=== PATIENT | male | born 1950 | race Caucasian/White ===

== ENCOUNTER 2018-08-24 14:09 | Observation (INO) | payer OTHER, SELFPAY ==
[2018-08-17 11:55] VITALS: BMI 40.2
[2018-08-23] VITALS (16 sets, daily range): BP systolic 125–143; BP diastolic 58–82; PULSE 81–113; RESP 10–112; TEMP 36.3–37.2; O2SAT 94–100; BMI 40.2
--- NOTE | 2018-08-23 | DI.RAD.S_ITS ---
PROCEDURE: XR LUMBAR SPINE 1V INDICATIONS: L2-3, L3-4 LAMINECTOMY TECHNIQUE: 1 view of the lumbar spine were acquired. COMPARISON: [facility], MR, MR LUMBAR SPINE WITHOUT CONTRAST, 05/25/2018, 10:29. FINDINGS: A lateral fluoroscopy images demonstrate a surgical probe at the level of L2-L3. IMPRESSION: Surgical probe at the level of L2-L3. Dictated by: Maddy Gonzales M.D. on 08/23/2018 at 15:02 Approved by: Maddy Gonzales M.D. on 08/23/2018 at 15:03
[2018-08-23] MEDS: LACTATED RINGERS 1,000 ML 42 ML IV (06:49)
--- NOTE | 2018-08-23 07:25 | PM.PREOP ---
Pre-operative Note Interval Note History & Physical reviewed/Exam performed by Physician: Yes Changes to H&P: No
--- NOTE | 2018-08-23 07:33 | PM.OP.1 ---
Operative Date/Time/Diagnoses Date of procedure: 08/23/18 Time of procedure: 09:35 Pre-op diagnosis: lumbar stenosis with radiculopathy Post-op diagnosis: same Procedure & Clinicians Procedure: L2-3, L3-4 laminectomy Use of microscope Placement of epidural catheter Same procedure as scheduled: Yes Indications: [age] year old male with intractable pain from stenosis. They had failed conservative management and requested operative intervention. Risks and benefits of surgery were discussed and appropriate consents were obtained. Surgeon: René Anderson Combat Systems Engineer: Jaqueline Clifton Anesthesia Type: General Operative Notes Findings: None Closure Type: primary Specimen(s): none sent Estimated Blood Loss (mL): 20 Procedure in detail: Patient was brought to the operating room and intubated on the table. They were rolled over on the well-padded prone position on the Patrice table. A time-out was performed. Preoperative antibiotics were given. The back was prepped and draped in standard sterile fashion. Using fluoroscopy for localization, a 7 cm incision was made in the midline. We used Bovie to dissect through the lumbodorsal fascia and then subperiosteally dissect the paraspinal muscles off the right side. A marker was placed and x-ray was taken to confirm positioning. We then brought in the microscope. A right-sided laminectomy was performed at L2-3 and L3-4. We carefully depressed the dura and reached across the midline to decompress the opposite side. The neural foramen were cleared out. At the end, we could reach with the ball probe cephalad and caudally across the midline and to the foramen and everything was opened. The wound was irrigated. An epidural catheter was prepared with 8 mL of 0.25% Marcaine and 100 mcg of fentanyl. The dura was carefully depressed and the catheter was advanced 6 cm cephalad underneath remaining lamina without resistance. The fascia was then closed in layers. The epidural catheter was injected without complications. Vancomycin powder was placed in the wound. The superficial and the skin were closed. Sterile dressing was placed. Patient was rolled over extubated brought to recovery room with no complications. Complications: none Condition: stable Disposition: PACU Plan for aftercare: Overnight admission. Mobilize with therapy.
[2018-08-23] MEDS: CLINDAMYCIN 900 MG/50 ML PIGGYBACK 50 MG IV ×3 (07:45→23:53)
--- NOTE | 2018-08-23 08:13 | SUR.OPER ---
Prone on spine table, head in foam head support, padded chest and pelvic supports, gel pad at knees, lower legs supported by pillows; nipples, genitalia and toes free of pressure, arms secured on foam padded arm boards at <90 degrees abduction. Tape over blanket at thigh secured to table.
[2018-08-23] MEDS: THROMBIN (RECOMBINANT) 5,000 UNIT VIAL 5000 UNIT TOP (08:25)
[2018-08-23] MEDS: VANCOMYCIN 1,000 MG VIAL 1000 MG TOP (08:25)
[2018-08-23] MEDS: BUPIVACAINE 0.25% (PF) 8 ML, fentaNYL 100 MCG INJ (08:31)
[2018-08-23] MEDS: SODIUM CHLORIDE 0.9% 1,000 ML, GENTAMICIN 80 MG IRR (09:03)
--- NOTE | 2018-08-23 10:32 | CM.DANOTE ---
DCP: Case received, EMR reviewed and met with patient's , for he is in surgery. DCP template completed with information given, and currently available. White board updated in room. Patient is a 68 year old male who admitted early this morning to the care of the surgical team. PCP: Maral Cid at [facility]. Payer: confirmed: [employer]. Patient came to hospital for surgical procedure. He had L2-3, L3-4 Laminectomy. He has history of left lateral and anterior leg pain. Spoke to , Misty. She stated, he has had a couple of falls at home, his leg would just give out. She has already gotten him a walker. He has been driving as well. Him and his both reside in [facility]. P: DCP to continue to follow closely. Will see how he progresses post surgery. He will be working with physical therapy team as well, and will also collaborate with them as well. Eve Yang RN/Treasury Specialist
[2018-08-23] MEDS: LACTATED RINGERS 1,000 ML 125 ML IV ×2 (10:55→21:54)
[2018-08-23] MEDS: ACETAMINOPHEN 325 MG TABLET 650 MG PO ×2 (12:39→21:53)
--- NOTE | 2018-08-23 13:23 | PC.NURSE ---
Post-op: Arrived to room 218 at 1030. Wide awake and alert, oriented X3. Dressing to mid low back C/D/I. Reports mild numbness/tingling in BLE's resolving. Feet pink, cap refill <2 sec. Reporting mild pain in low back, given Tylenol and instructed to request stronger pain meds as needed. Denies N/V. BT+, hypoactive. Denies urge to void, continue to monitor. Lungs CTA, HRR. SpO2 on RA 99-100%. IVF per orders, site in R wrist WNL. Oriented to room and call light, encouraged to make needs known. Light in reach, bed alarm on.
[2018-08-23] MEDS: OXYCODONE IR 5 MG TABLET PO ×3 (14:11→21:53)
--- NOTE | 2018-08-23 16:00 | PT.IIE ---
Current Diagnoses Spinal stenosis, lumbar region with neurogenic claudication (08/23/18) Radiculopathy, lumbar region (08/23/18) Strain of muscle, fascia and tendon of lower back, subsequent encounter (08/23/18) Surgery Performed Operation Date: 08/23/18 07:45 Actual Procedures p L2-3, L3-4 Laminectomy - René Anderson MD Surgical History (Last Updated 08/17/18 @ 12:45 by Fatimah Smith RN) H/O coronary angioplasty (Acute) Hx of heart artery stent (Acute ~04/2013) Hx of laminectomy (Acute 08/08/15) Hx of transurethral resection of prostate (Acute) Medical History (Last Updated 08/17/18 @ 12:45 by Fatimah Smith RN) Anxiety (Acute) Arrhythmia (Acute) Atypical chest pain (Acute) BPH (benign prostatic hyperplasia) (Acute) CAD (coronary artery disease) (Acute) Chronic back pain (Acute) Depression (Acute) Diabetes (Acute) First degree AV block (Acute) HLD (hyperlipidemia) (Acute) HTN (hypertension) (Acute) Lipoma (Acute) Lower extremity edema (Acute) LEONARDO (obstructive sleep apnea) (Acute) Syncope (Acute) Vitamin D deficiency (Acute) Physical Therapy Inpatient Evaluation/Re-Eval M1 PT/OT-IP Prior Functional Status Start: 08/23/18 15:50 Freq: NEEDED Status: Active Protocol: Document 08/23/18 15:51 RS (Rec: 08/23/18 15:59 RS [id number]) Medical Review Prior Functional Status Medical History Reviewed Yes Diet/Fluid Consistency Regular Communication no known deficits Mobility and Gait ind without device Activities of Daily Living and IADL's ind Prior Functional Level (Other details) has fallen a few times due to RLE giving out Social History Household Members spouse Living Arrangements House Number of Floors (Floors) One Floor Number of Stairs To Enter/Railing? 3STE Home Environment Standard Height Toilet High Toilet Built-In Shower Seat Home Equipment Four Wheel Walker Hand Held Shower Feller Operator Hospital Bed Additional Social History Comment in process of retiring due to injury M2 PT-IP Current Condition Start: 08/23/18 15:50 Freq: NEEDED Status: Active Protocol: Document 08/23/18 15:51 RS (Rec: 08/23/18 15:59 RS [id number]) Physical Therapy Current Condition Current Condition Evaluation Date 08/23/18 Treatment Diagnosis L2-4 lami Onset Date 08/23/18 Precautions Lumbar Precautions Log Roll No Twisting Limit Bending Lifting Restriction of 10 lbs Gait Belt above Incisional Area M3 PT-IP Subjective Start: 08/23/18 15:50 Freq: NEEDED Status: Active Protocol: Document 08/23/18 15:51 RS (Rec: 08/23/18 15:59 RS [id number]) Subjective Physical Therapy Visit Type Type Initial Evaluation Visit Start Time 14:50 Visit Stop Time 15:51 Total Visit Minutes 61 Physical Therapy Visit Comments Patient Comments Pt nervous to mobilize but ultimately agreeable. Patient Goals Go home. Therapy Pain Assessment Pain When Pain Assessed During Mobility Pain Present Pain Present Pain Reported Location lower back Description Aching Tender With Movement Pain Behaviors Wincing Pain Management Techniques Re-positioning Timing of Activity with Medications M4 PT-IP Mobility and Gait Start: 08/23/18 15:50 Freq: NEEDED Status: Active Protocol: Document 08/23/18 15:51 RS (Rec: 08/23/18 15:59 [id number]) PT-Bed Mobility Assessment Rolling Type of Rolling Log Rolling Roll to Right Level of Assist Minimal Assistance Supine to Sit Supine to Sit Minimal Assistance Scooting Scooting to Edge of Bed Standby Assistance PT-Transfer Assessment Sit to and From Stand Sit to and from Stand Contact Guard Assistance Equipment Transfer Assistive Device Gait Belt Front Wheeled Walker Transfers Transfer Destination Bed Chair Transfer Technique walked Transfer Ability Level of Assist Standby Assistance Comments Mobility Comments Pt able to perform R log roll, min A provided as pt was so close to the edge of the bed to begin with. Min A provided to actually roll and then also Min A to come up to sitting. Transfers were very stable, no LOB, good smooth motion. Gait Assessment Gait Gait Assistance Required: Standby Assistance Distance (Feet) 200 Assistive Devices Assistive Device Gait Belt Front Wheeled Walker Gait Deviations General Gait Pattern Within Normal Limits Comments Gait Comments Pt taking slightly shorter steps but able to take symmetrical non antlagic steps without any LOB. Good posture , minimally stiff. Stair Climbing Assessment Comments Stair Climbing Comments not tested yet PT-Balance Assessment Sitting Balance and Reactions Static Sitting Balance Ability Normal Dynamic Sitting Balance Ability Fair Standing Balance and Reactions Static Standing Balance Ability Good Dynamic Standing Balance Ability Good Device Used FWW M5 PT-IP Objective Assessments Start: 08/23/18 15:50 Freq: NEEDED Status: Active Protocol: Document 08/23/18 15:51 RS (Rec: 08/23/18 15:59 RS [id number]) Orientation Orientation/Cognition Level of Alertness Alert Orientation Name Age Birthday Month Date Year Day of Week Place Situation Language Function Ability No Deficits Noted Safety Awareness Understands Safety Issues Memory Description No Deficits Noted Gross Range of Motion Upper Extremity ROM Assessment Left Impaired Lower Extremity ROM Assessment Within Functional Limits Strength Upper Extremity Strength Assessment Left Impaired Lower Extremity Strength Assessment Within Functional Limits M6 PT-IP Treatment Start: 08/23/18 15:50 Freq: NEEDED Status: Active Protocol: Document 08/23/18 15:51 RS (Rec: 08/23/18 15:59 RS [id number]) Physical Therapy Treatment Education Education Provided Precautions Post-Op Packet Safety M7 PT-IP Assessment and Plan Start: 08/23/18 15:50 Freq: NEEDED Status: Active Protocol: Document 08/23/18 15:51 RS (Rec: 08/23/18 15:59 RS [id number]) PT Summary Assessment and Plan Potential Rehabilitation Potential Excellent Status of Condition at Evaluation Stable Summary Impairments Pain Bed Mobility Transfers Gait Assessment Summary Pt is POD#0 L2-4 laminectomy. Pt presents with pain and gross deconditioning as expected after this surgery. Pt's RLE stability seems to be much better than before surgery per pt report. Pt needed min A for bed mobility but was otherwise CGA<>min A with FWW for transfers and gait. Pt will need stair training and more bed mobility training with associated family training prior to discharge, but once that is complete pt will be safe to discharge home once medically cleared. Goals Bed Mobility Goal Standby Assistance Transfer Goal Standby Assistance Four Wheeled Walker Gait Goal Standby Assistance Four Wheel Walker Gait Distance 250 Other Goals up/down 3 steps with CGA Days to Meet Goals 2 Frequency of Treatment Frequency Of Treatment Twice a Day Treatment Plan Physical Therapy Treatment Plan Bed Mobility Training Transfer Training Gait Training Therapeutic Exercise Balance Retraining Post Op Education Discharge Planning Hot or Cold Pack Neuromuscular Re-ed Coordination Retraining Manual Therapy Other Recommendations and Next Treatment stairs, trial 4WW (that's what Focus pt has at home, might need FWW if not safe with 4WW), any fam training Recommendations To Nursing Amount of Assist Needed 1 Person Assist Discharge Recommendations PT Discharge Recommendations Home with 24/ Assist Outpatient PT
[2018-08-23] MEDS: NAPROXEN 250 MG TABLET 500 MG PO (17:02)
[2018-08-23] MEDS: METFORMIN HCL 500 MG TABLET 1000 MG PO (17:28)
[2018-08-23] MEDS: DOCUSATE 100 MG CAPSULE PO (21:52)
[2018-08-23] MEDS: glipiZIDE 5 MG TABLET 10 MG PO (21:52)
[2018-08-23] MEDS: SENNOSIDES 8.6 MG TABLET 17.2 MG PO (21:52)
[2018-08-23] MEDS: GABAPENTIN 300 MG CAPSULE PO (21:52)
[2018-08-24] VITALS (7 sets, daily range): BP systolic 122–145; BP diastolic 62–76; PULSE 80–95; RESP 18–20; TEMP 36.5–36.9; O2SAT 96
--- NOTE | 2018-08-24 00:15 | PC.NURSE ---
Addendum entered by Cherie Bowles R.N. 08/24/18 01:07: Medicated with Oxycodone for complaint of 3/10 pain; declines ice or repositioning. Original Note: Patient is alert and oriented. Breath sounds CTA with RA sat on CPAP of 94%. HRR. Denies nausea. BT present and abdomen is soft; passing flatus. Voiding without difficulty; uses urinal. Assisted to turn on request as has difficulty with turning due to torn rotator cuff on left UE. Dressing to back is CDI; bruising noted below dressing. Complains of 4/10 pain but states it is tolerable and declines offer of ice pack; last had pain meds around 2200. CMS is intact. Wearing bilateral calf SCD's. Fall risk score is high and bed alarm is activated.
[2018-08-24] MEDS: OXYCODONE IR 5 MG TABLET PO ×4 (01:00→21:09)
[2018-08-24 05:56] LABS: Hematocrit 32.7 % (41-53); Hemoglobin 10.8 g/dL (13.5-17.5)
[2018-08-24 06:02] LABS: BUN Creatinine Ratio 18.5 (6-22); Blood Urea Nitrogen 24 mg/dL (9-20); Calcium 8.8 mg/dL (8.4-10.2); Carbon Dioxide 29 mmol/L (22-32); Chloride 102 mmol/L (98-107); Estimated Glomerular Filt Rate 54.6 mL/min (>60); Glucose 121 mg/dL (80-110); HEMOLYSIS < 15 (0-50); Potassium 4.3 mmol/L (3.4-5.1); Sodium 137 mmol/L (137-145)
--- NOTE | 2018-08-24 07:59 | PM.PNPO.1 ---
Subjective Date Patient Seen: 08/24/18 Time Patient Seen: 07:59 Interval history: He is doing well. No more pain in his legs. Pain in the back is about 6/10 with any activity but fairly comfortable at rest. Exam Vital Signs (past 8 hours): - 08/24/18 04:00 Temperature 97.8 F Pulse Rate 80 Respiratory Rate 18 Blood Pressure 130/67 Pulse Oximetry 96 Oxygen Delivery Method CPAP Oxygen Flow Rate 0 Const Orientation: alert and oriented x3 Back/Spine/Pelvis Other: CDI. 5/5 motor both lower extremities. Objective Labs Result Diagrams: 08/24/18 05:30 08/24/18 05:30 Labs: Laboratory Results - last 24 hr 08/24/18 08/24/18 05:30 05:30 Hgb 10.8 L Hct 32.7 L Sodium 137 Potassium 4.3 Chloride 102 Carbon Dioxide 29 BUN 24 H Creatinine 1.30 H Estimated GFR 54.6 L BUN/Creatinine Ratio 18.5 Glucose 121 H Calcium 8.8 Assessment & Plan Post-op Postoperative Procedures Operation Date: 08/23/18 07:45 Actual Procedures Side Surgeon p L2-3, L3-4 Laminectomy René Anderson MD Still early recovering. Mobilize today with physical therapy. Most likely discharge home tomorrow. His blood sugars are running still about 175, will try to work on this today. Quality VTE Deep Vein Thrombosis/Pulmonary Embolism Present on Admission: No
[2018-08-24] MEDS: LISINOPRIL 20 MG TABLET 40 MG PO (08:44)
[2018-08-24] MEDS: NAPROXEN 250 MG TABLET 500 MG PO ×2 (08:44→17:04)
[2018-08-24] MEDS: DOCUSATE 100 MG CAPSULE PO ×2 (08:45→21:05)
[2018-08-24] MEDS: ASPIRIN EC 81 MG TABLET PO (08:45)
[2018-08-24] MEDS: OXYBUTYNIN 5 MG ER TAB 15 MG PO (08:46)
[2018-08-24] MEDS: glipiZIDE 5 MG TABLET 10 MG PO ×2 (08:46→21:05)
[2018-08-24] MEDS: PIOGLITAZONE 15 MG TABLET 30 MG PO (08:47)
[2018-08-24] MEDS: METFORMIN HCL 500 MG TABLET 1000 MG PO ×2 (08:48→17:04)
[2018-08-24] MEDS: SODIUM CHLORIDE 0.9% FLUSH 10 ML IV ×2 (08:49→21:06)
--- NOTE | 2018-08-24 09:49 | PC.NURSE ---
Pt is A&Ox3. He states that he is having some pain to his lower back...Given 1 oxycodone for discomfort and will recheck pts pain leve in 30-45 minutes. Pt also given ice packs for his back. Dressing to lower back with small amount of ss drainage to distal end of incision. Pt working with PT and OT and tolerating well. Pt has a discharge order to go home but talked to and states that he could stay another night if needed. in room visiting.
--- NOTE | 2018-08-24 12:17 | PT.IPTN ---
Current Diagnoses Spinal stenosis, lumbar region with neurogenic claudication (08/23/18) Radiculopathy, lumbar region (08/23/18) Strain of muscle, fascia and tendon of lower back, subsequent encounter (08/23/18) Surgery Performed Operation Date: 08/23/18 07:45 Actual Procedures p L2-3, L3-4 Laminectomy - René Anderson MD Physical Therapy Treatment Note M2 PT-IP Current Condition Start: 08/23/18 15:50 Freq: NEEDED Status: Active Protocol: Document 08/23/18 15:51 RS (Rec: 08/23/18 15:59 RS [id number]) Physical Therapy Current Condition Current Condition Evaluation Date 08/23/18 Treatment Diagnosis L2-4 lami Onset Date 08/23/18 Precautions Lumbar Precautions Log Roll No Twisting Limit Bending Lifting Restriction of 10 lbs Gait Belt above Incisional Area M3 PT-IP Subjective Start: 08/23/18 15:50 Freq: NEEDED Status: Active Protocol: Document 08/24/18 12:03 SA (Rec: 08/24/18 12:17 SA [id number]) Subjective Physical Therapy Visit Type Type Treatment Note Visit Start Time 10:17 Visit Stop Time 10:45 Total Visit Minutes 28 Number of SPA DIRECTOR/FINANCE Visits 1 Physical Therapy Visit Comments Patient Comments Pt up in chair and agreeable to PT, present this AM. Patient Goals Go home. Therapy Pain Assessment Pain When Pain Assessed During Mobility Pain Present Pain Present Pain Reported Location lower back Intensity 4 Scale Used Numeric (1 - 10) Description Aching Tender With Movement Pain Behaviors Wincing Pain Management Techniques Re-positioning Timing of Activity with Medications M4 PT-IP Mobility and Gait Start: 08/23/18 15:50 Freq: NEEDED Status: Active Protocol: Document 08/24/18 12:03 SA (Rec: 08/24/18 12:17 SA [id number]) PT-Bed Mobility Assessment Supine to Sit Supine to Sit Contact Guard Assistance Scooting Scooting to Edge of Bed Standby Assistance Scooting Up and Down in Bed Standby Assistance PT-Transfer Assessment Sit to and From Stand Sit to and from Stand Contact Guard Assistance Equipment Transfer Assistive Device Gait Belt Front Wheeled Walker Transfers Transfer Destination Bed Chair Transfer Technique walked Transfer Ability Level of Assist Standby Assistance Comments Mobility Comments Pt CGA for sit to supine with log roll technique and instruction. SBA-CGA for transfers with FWW. Review of spinal precautions. Gait Assessment Gait Gait Assistance Required: Standby Assistance Distance (Feet) 250 Assistive Devices Assistive Device Gait Belt Front Wheeled Walker Gait Deviations General Gait Pattern Within Normal Limits Comments Gait Comments Improving gait quality and distance, even step lengths and cues for decreasing WBing through UEs, manages FWW safely. Stair Climbing Assessment Evaluation Level of Assist On Stairs Contact Guard Assistance Devices Stair Climbing Assistive Devices Left Railing Right Railing Technique/Endurance Stair Climbing Direction Ascend and Descend Stair Climbing Technique Step to Step Number of Steps Climbed 3 Query Text: Stair Climbing Set # Repetitions (reps) 1 Comments Stair Climbing Comments Pt CGA with stairs and use of B rails, Mod cues for safe technique, no LOb. M5 PT-IP Objective Assessments Start: 08/23/18 15:50 Freq: NEEDED Status: Active Protocol: Document 08/23/18 15:51 RS (Rec: 08/23/18 15:59 RS [id number]) Orientation Orientation/Cognition Level of Alertness Alert Orientation Name Age Birthday Month Date Year Day of Week Place Situation Language Function Ability No Deficits Noted Safety Awareness Understands Safety Issues Memory Description No Deficits Noted Gross Range of Motion Upper Extremity ROM Assessment Left Impaired Lower Extremity ROM Assessment Within Functional Limits Strength Upper Extremity Strength Assessment Left Impaired Lower Extremity Strength Assessment Within Functional Limits M6 PT-IP Treatment Start: 08/23/18 15:50 Freq: NEEDED Status: Active Protocol: Document 08/24/18 12:03 (Rec: 08/24/18 12:17 [id number]) Physical Therapy Treatment Exercises Exercises Ankle Pumps Gluteal Sets Quad Sets Education Education Provided Precautions Post-Op Packet Safety Other Treatments Other Treatment Performed Pt able to stand at toilet to urinate without LOB. M7 PT-IP Assessment and Plan Start: 08/23/18 15:50 Freq: NEEDED Status: Active Protocol: Document 08/24/18 12:03 (Rec: 08/24/18 12:17 [id number]) PT Summary Assessment and Plan Potential Rehabilitation Potential Excellent Status of Condition at Evaluation Stable Summary Assessment Summary Pt progressing well with functional mobility, RLE improving and pt SBA-CGA with transfers, gait and stairs. Pt 's present and available as caregiver. Frequency of Treatment Frequency Of Treatment Twice a Day Treatment Plan Physical Therapy Treatment Plan Bed Mobility Training Transfer Training Gait Training Therapeutic Exercise Balance Retraining Post Op Education Discharge Planning Hot or Cold Pack Neuromuscular Re-ed Coordination Retraining Manual Therapy Other Recommendations and Next Treatment stairs, trial 4WW (that's what Focus pt has at home, might need FWW if not safe with 4WW), any fam training Recommendations To Nursing Amount of Assist Needed 1 Person Assist Discharge Recommendations PT Discharge Recommendations Home with 26/10 Assist Outpatient PT
[2018-08-24] MEDS: INSULIN ASPART 100 UNIT/ML INSULN PEN SUBCUT (12:22)
[2018-08-24] MEDS: ACETAMINOPHEN 325 MG TABLET 650 MG PO (13:49)
--- NOTE | 2018-08-24 15:10 | OT.IP.EVAL ---
Current Diagnoses Spinal stenosis, lumbar region with neurogenic claudication (08/24/18) Radiculopathy, lumbar region (08/24/18) Strain of muscle, fascia and tendon of lower back, subsequent encounter (08/24/18) Surgery Performed Operation Date: 08/23/18 07:45 Actual Procedures p L2-3, L3-4 Laminectomy - René Anderson MD Past Medical History (Last Updated 08/17/18 @ 12:45 by Fatimah Smith RN) Anxiety (Acute) Arrhythmia (Acute) Atypical chest pain (Acute) BPH (benign prostatic hyperplasia) (Acute) CAD (coronary artery disease) (Acute) Chronic back pain (Acute) Depression (Acute) Diabetes (Acute) First degree AV block (Acute) HLD (hyperlipidemia) (Acute) HTN (hypertension) (Acute) Lipoma (Acute) Lower extremity edema (Acute) LEONARDO (obstructive sleep apnea) (Acute) Syncope (Acute) Vitamin D deficiency (Acute) Surgical History (Last Updated 08/17/18 @ 12:45 by Fatimah Smith RN) H/O coronary angioplasty (Acute) Hx of heart artery stent (Acute ~04/2013) Hx of laminectomy (Acute 08/08/15) Hx of transurethral resection of prostate (Acute) Occupational Therapy Inpatient Evaluation/Re-Eval M1 PT/OT-IP Prior Functional Status Start: 08/23/18 15:50 Freq: NEEDED Status: Active Protocol: Document 08/24/18 15:10 PJM (Rec: 08/24/18 17:21 PJM [id number]) Medical Review Prior Functional Status Medical History Reviewed Yes Diet/Fluid Consistency Regular Communication WNL Mobility and Gait Pt ambulates independently without device. Activities of Daily Living and IADL's Pt independent except occasionally assisting with socks and shoes due to low back pain. assists with all IADLS at home and she works days driving school bus and working at school. She can come home for lunch to assist pt PRN. Prior Functional Level (Other details) Pt states he has fallen three times recently due to RLE giving out, resulting in L rotator cuff tear. Social History Household Members spouse Living Arrangements House Number of Floors (Floors) One Floor Number of Stairs To Enter/Railing? 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 Pt declines long bath sponge and states he plans to stand to shower. M2 OT-IP Current Condition Start: 08/24/18 17:00 Freq: Status: Active Protocol: Document 08/24/18 15:10 PJM (Rec: 08/24/18 17:21 PJM [email or web address]) Occupational Therapy Current Condition Current Condition Evaluation Date 08/24/18 Treatment Diagnosis decreased self care, mobility s/p L2-3, L3-4 lami's Diagnosis Onset Date 08/23/18 Post Operative Precautions Lumbar Precautions Log Roll No Twisting Limit Bending Lifting Restriction of 10 lbs Gait Belt above Incisional Area M3 OT- IP Subjective and Pain Start: 08/24/18 17:00 Freq: Status: Active Protocol: Document 08/24/18 15:10 PJM (Rec: 08/24/18 17:21 PJM [email or web address]) OT- Subjective Occupational Therapy Visit Type Type Initial Evaluation Visit Start Time 14:20 Visit Stop Time 15:10 Total Visit Minutes 50 Notes Pt's here for education; pt/ had many questions re: adapted ADL skills and resources for equipment. Occupational Therapy Visit Comments Patient Comments I am not sure how I can wipe myself after going to the bathroom. Patient/Caregiver Goals to go home, have less back pain during daily tasks, avoid falling OT Pain Assessment Pain When Pain Assessed After Treatment Pain Present Pain Present Pain Reported Location lower back Intensity 2 Description Aching Acute Management Techniques Distraction Timing of Activity with Medications M4 OT- IP ADL's Start: 08/24/18 17:00 Freq: Status: Active Protocol: Document 08/24/18 15:10 PJM (Rec: 08/24/18 17:21 PJ [id number]) OT [id number] General Evaluation Self-Feeding Ability Independent OT ADL-Grooming Comments OT Grooming Comments did not occur this session OT ADL-Oral Care Comments Oral Care Comments did not occur this session OT ADL-Dressing General Eval Upper Body Dressing Ability Standby Assistance Lower Body Dressing Ability Maximum Assistance Assistive Devices Dressing Assistive Devices Long Handled Shoe Horn Sock Folder Sock Aid Comments OT Dressing Comments Provided education re: use of second baller, sock aid and long shoe horn for lower body dressing with emphasis on lumbar spine precautions. Pt has second baller and long shoe horn . He would like to try wide sock aid tomorrow as leaves for work before he gets up. OT ADL-Toileting General Evaluation Areas Needing Assistance Perform Perineal Hygiene Devices Toileting Assistive Devices Toilet Paper Aid Comments OT Toileting Comments Provided education re: types of toilet paper aids and resources for these. will order one on line. Provided education re: body mechanics as pt tends to twist during this task. OT ADL-Bathing Bathing Type Bathing Type Shower Comments OT Bathing Comments Provided education re: body mechanics and lumbar spine precautions. M5 OT- IP IADL's Start: 08/24/18 17:00 Freq: Status: Active Protocol: Document 08/24/18 15:10 PJ (Rec: 08/24/18 17:21 [facility] [id number]) OT-Instrumental Activities of Daily Living Deficits IADL Deficits Identified Deficits Home Safety Awareness Awareness of Need for Assistance at Home Good Awareness Ability to Problem Solve Emergency Able to Problem Solve Situations Medication Management Medication Management No Deficits Identified Money Management Money Management No Deficits Identified Meal Preparation Meal Preparation Caregiver Provides Assist Meal Preparation Comments to assist PRN Fabricator Industrial Furnace Fabricator Industrial Furnace Caregiver Provides Assist Fabricator Industrial Furnace Comments to assist PRN Driving Driving Caregiver Provides Assist Driving Comments to assist until pt able M6 OT- IP Functional Cognition Start: 08/24/18 17:00 Freq: Status: Active Protocol: Document 08/24/18 15:10 PJM (Rec: 08/24/18 17:21 [facility] [id number]) Cognitive Factors Limiting Selfcare Function Cognitive Ability Level of Alertness Alert Patient Orientation Name Age Birthday Month Date Year Day of Week Place Situation Attention Span Ability Capable of Focused Attention Capable of Sustained Attention Ability to Follow Commands Able to Follow One Step Commands Memory Description No Deficits Noted Safety Awareness No Deficits Noted Problem Solving Ability Needs Assist to Identify Solutions Executive Function Ability No Deficits Noted Abstract Thinking Ability No Deficits Noted Cognitive Comments Cognitive Assessment Comments Pt verbalizes 3/3 lumbar spine precautions and asking appropriate and detailed questions about adapted ADL techniques. OT- Vision and Hearing OT- Hearing Assessment OT- Hearing Assessment WFL OT- Vision Assessment Visual Acuity WFL Glasses All The Time Vision Assessment Comments denies any recent vision changes M7 OT- IP Mobility and Balance Start: 08/24/18 17:00 Freq: Status: Active Protocol: Document 08/24/18 15:10 PJM (Rec: 08/24/18 17:21 PJ [id number]) OT-Transfer Assessment Technique Transfer Destination Car Comments Mobility Comments see P.T. notes; provided education re: car transfer techniques and use of handy bar OT- Gait Assessment Comments Gait Ability Comments see P.T. notes OT- Balance Assessment Comments Other Balance Tests/Deviations/Treatment see P.T. notes : M8 OT- IP Objective Assessments Start: 08/24/18 17:00 Freq: Status: Active Protocol: Document 08/24/18 15:10 PJM (Rec: 08/24/18 17:21 PJ [id number]) OT Gross Range of Motion Upper Extremity Range of Motion Assessment Within Functional Limits ROM Impairments BUE WFL except for L shoulder with pt receiving P.T. for recent rotator cuff tear with slow deliberate shoulder flexion, mildly limited end range scaption noted. OT Strength Upper Extremity Strength Assessment Within Functional Limits Comments Strength Comments L shoulder NT due to recent injury. OT- Coordination Assessment Comments Coordination Comments BUE WFL OT-Muscle Tone Assessment Muscle Tone WNL Yes OT Sensation Assessment Comments Summary Comments Pt denies BUE deficits. Edema Edema Absent M9 OT- IP Assessment and Plan Start: 08/24/18 17:00 Freq: Status: Active Protocol: Document 08/24/18 15:10 PJM (Rec: 08/24/18 17:21 PJ [id number]) OT Summary Assessment and Plan Potential Rehabilitation Potential Good Analytic Complexity at Evaluation Low Summary OT Impairments Pain Functional Mobility Dressing Toileting Bathing Toilet Transfers Shower Transfers Assessment Summary Low complexity OT assessment completed with emphasis on self care tasks within lumbar spine precautions. Provided education to pt/ re: posture, chair selection, body mechanics, adapted ADL techniques, optimal clothing choices and equipment options/resources. Per discussion with P.T., pt moving well and should be able to d/c home tomorrow with supportive working . Plan one additional OT visit to practice adapted ADL techniques Goals Grooming Goal Independent Dressing Goal Independent Long Handled Shoe Horn Sock Folder Sock Aid Toileting Goal Independent Toilet Paper Aid Bathing Goal Standby Assistance Toilet Transfer Goal Independent Shower Transfer Goal Standby Assistance Patient/Caregiver Education Goal Demonstrate Post-Op Precautions Demonstrate Energy Conservation and Pacing Caregiver Independent Assisting Patient OT-Other Goals Grooming to be done standing at sink with good body mechanics. Days to Meet Goals 1 Frequency of Treatment Frequency Of Treatment Once a Day Treatment Plan OT Treatment Plan ADL Training Functional Mobility Patient/Family Education Discharge Planning Discharge Recommendations OT Discharge Recommendations Home with Assistance Home Equipment Needs wide sock aid
--- NOTE | 2018-08-24 15:38 | PT.IPTN ---
Current Diagnoses Spinal stenosis, lumbar region with neurogenic claudication (08/24/18) Radiculopathy, lumbar region (08/24/18) Strain of muscle, fascia and tendon of lower back, subsequent encounter (08/24/18) Surgery Performed Operation Date: 08/23/18 07:45 Actual Procedures p L2-3, L3-4 Laminectomy - René Anderson MD Physical Therapy Treatment Note M2 PT-IP Current Condition Start: 08/23/18 15:50 Freq: NEEDED Status: Active Protocol: Document 08/23/18 15:51 RS (Rec: 08/23/18 15:59 RS [id number]) Physical Therapy Current Condition Current Condition Evaluation Date 08/23/18 Treatment Diagnosis L2-4 lami Onset Date 08/23/18 Precautions Lumbar Precautions Log Roll No Twisting Limit Bending Lifting Restriction of 10 lbs Gait Belt above Incisional Area M3 PT-IP Subjective Start: 08/23/18 15:50 Freq: NEEDED Status: Active Protocol: Document 08/24/18 15:31 SA (Rec: 08/24/18 15:37 SA [id number]) Subjective Physical Therapy Visit Type Type Treatment Note Visit Start Time 15:00 Visit Stop Time 15:30 Total Visit Minutes 30 Number of TOWEL FOLDER Visits 2 Physical Therapy Visit Comments Patient Comments Pt agreeable to PT this afternoon. Patient Goals Go home. Therapy Pain Assessment Pain When Pain Assessed During Mobility Pain Present Pain Present Denied Pain M4 PT-IP Mobility and Gait Start: 08/23/18 15:50 Freq: NEEDED Status: Active Protocol: Document 08/24/18 15:31 SA (Rec: 08/24/18 15:37 SA [id number]) PT-Transfer Assessment Sit to and From Stand Sit to and from Stand Standby Assistance Use of Upper Extremities Equipment Transfer Assistive Device Gait Belt Front Wheeled Walker Transfers Transfer Destination Bed Chair Transfer Technique walked Transfer Ability Level of Assist Standby Assistance Comments Mobility Comments Pt SBA with txs and FWW, reports little to no back pain with mobility. Decreased gaurded posture this afternoon . Gait Assessment Gait Gait Assistance Required: Standby Assistance Distance (Feet) 300 Assistive Devices Assistive Device Gait Belt Front Wheeled Walker Gait Deviations General Gait Pattern Within Normal Limits Comments Gait Comments PT presents with normal gait pattern and safe use of FWW, avoids obstacles well and turns easily, did not fatigue with gait and states he feels good walking. Stair Climbing Assessment Evaluation Level of Assist On Stairs Standby Assistance Devices Stair Climbing Assistive Devices Left Railing Right Railing Technique/Endurance Stair Climbing Direction Ascend and Descend Stair Climbing Technique Step to Step Number of Steps Climbed 3 Query Text: Stair Climbing Set # Repetitions (reps) 2 Comments Stair Climbing Comments SBA with stair training and use of B rails, pt has B rails at home. Did not need cues for safety or technique and denied pain with actiivty. M5 PT-IP Objective Assessments Start: 08/23/18 15:50 Freq: NEEDED Status: Active Protocol: Document 08/23/18 15:51 RS (Rec: 08/23/18 15:59 RS [id number]) Orientation Orientation/Cognition Level of Alertness Alert Orientation Name Age Birthday Month Date Year Day of Week Place Situation Language Function Ability No Deficits Noted Safety Awareness Understands Safety Issues Memory Description No Deficits Noted Gross Range of Motion Upper Extremity ROM Assessment Left Impaired Lower Extremity ROM Assessment Within Functional Limits Strength Upper Extremity Strength Assessment Left Impaired Lower Extremity Strength Assessment Within Functional Limits M6 PT-IP Treatment Start: 08/23/18 15:50 Freq: NEEDED Status: Active Protocol: Document 08/24/18 15:31 SA (Rec: 08/24/18 15:37 SA [id number]) Physical Therapy Treatment Exercises Exercises Ankle Pumps Gluteal Sets Quad Sets Education Education Provided Precautions Post-Op Packet Safety M7 PT-IP Assessment and Plan Start: 08/23/18 15:50 Freq: NEEDED Status: Active Protocol: Document 08/24/18 15:31 SA (Rec: 08/24/18 15:37 [id number]) PT Summary Assessment and Plan Potential Rehabilitation Potential Excellent Status of Condition at Evaluation Stable Summary Progress Towards Goals Progressing Toward Goals Assessment Summary Pt progressing toward functional goals well and present no safety concerns. Has all needed equipment and anticipate d/c home with tomorrow. Frequency of Treatment Frequency Of Treatment Twice a Day Treatment Plan Physical Therapy Treatment Plan Bed Mobility Training Transfer Training Gait Training Therapeutic Exercise Balance Retraining Post Op Education Discharge Planning Hot or Cold Pack Neuromuscular Re-ed Coordination Retraining Manual Therapy Recommendations To Nursing Amount of Assist Needed 1 Person Assist Discharge Recommendations PT Discharge Recommendations Home with / Assist Outpatient PT
[2018-08-24] MEDS: GABAPENTIN 300 MG CAPSULE PO (21:05)
[2018-08-24] MEDS: SENNOSIDES 8.6 MG TABLET 17.2 MG PO (21:06)
[2018-08-25 05:33] VITALS: BP 120/59; PULSE 82; RESP 17; TEMP 36.7; O2SAT 95
[2018-08-25 07:35] VITALS: BP 146/68; PULSE 89; RESP 18; TEMP 36.6; O2SAT 94
--- NOTE | 2018-08-25 08:04 | PM.PNPO.1 ---
Subjective Date Patient Seen: 08/25/18 Time Patient Seen: 08:04 Interval history: He is doing much better. Pain is only about a 2/10 at rest. Mobilizing well. Exam Vital Signs (past 8 hours): - 08/25/18 05:33 08/25/18 07:35 Temperature 98.0 F 97.8 F Pulse Rate 82 89 Respiratory Rate 17 18 Blood Pressure 120/59 L 146/68 H Pulse Oximetry 95 94 Oxygen Delivery Method CPAP Oxygen Flow Rate 0 Const Orientation: alert and oriented x3 Back/Spine/Pelvis Other: Mild drainage. 5/5 motor both lower extremities. Objective Labs Result Diagrams: 08/24/18 05:30 08/24/18 05:30 Assessment & Plan Post-op Postoperative Procedures Operation Date: 08/23/18 07:45 Actual Procedures Side Surgeon p L2-3, L3-4 Laminectomy René Anderson MD He is doing much better today. Plan to discharge home. Quality VTE Deep Vein Thrombosis/Pulmonary Embolism Present on Admission: No
--- NOTE | 2018-08-25 08:06 | PM.DS.1 ---
History of Present Illness Date Patient Seen: 08/25/18 Time Patient Seen: 08:06 Chief complaint: *OPB* [id number] Narrative: 68-year-old male with back pain and radiation going down the right leg. He had a work-related injury that causes. He went through extensive physical therapy as well as epidural injections without enough relief. Discharge Providers Date of admission: 08/24/18 14:09 Discharge Date: 08/25/18 Primary care physician: Jaron Bradford DO Consults: 08/23/18 07:22 Consult to Respiratory Therapy Evaluate & Treat Comment: Physician Instructions: Evaluate and treat 08/23/18 10:37 Consult to Occupational Therapy Evaluate & Treat Comment: Physician Instructions: Evaluate and treat Consult to Physical Therapy Evaluate & Treat Comment: Physician Instructions: Evaluate and Treat Discharge provider: René Anderson MD Summary Discharge Diagnosis: Lumbar stenosis with radiculopathy Hospital Course: He is brought to the operating room on 08/23/2018 where he underwent an L2-3 and L3-4 laminectomy. He had significant pain and limited mobility the 1st day. His blood sugars were elevated. By postop day 2. His blood sugars were getting under more normal control as well as his pain level was much more relieved and he was mobilizing well. Status at Discharge Cognitive/behavioral status at discharge: oriented Functional status at discharge: uses cane/walker Overall status at discharge: patient is progressing back to baseline Exam Vital Signs (past 8 hours): - 08/25/18 05:33 08/25/18 07:35 Temperature 98.0 F 97.8 F Pulse Rate 82 89 Respiratory Rate 17 18 Blood Pressure 120/59 L 146/68 H Pulse Oximetry 95 94 Oxygen Delivery Method CPAP Oxygen Flow Rate 0 Const Orientation: alert and oriented x3 Back/Spine/Pelvis Other: Mild drainage. 5/5 motor both lower extremities Objective Labs Result Diagrams: 08/24/18 05:30 08/24/18 05:30 Discharge Plan Discharge Plan Patient Disposition: Home Discharge comment: f/u 1.5 wks Discharge Med Rec/Prescriptions Prescriptions: New docusate sodium [DOK] 100 mg Capsule 100 mg PO BID PRN (Reason: constipation) Qty: 30 RF: 0 hydroxyzine pamoate 25 mg Capsule 25 mg PO Q4HR PRN (Reason: spasms) Qty: 20 RF: 0 oxycodone 5 mg Tablet See Rx Instructions .ROUTE .COMPLEX PRN (Reason: Pain, Moderate (4-6)) Qty: 30 RF: 0 Continued aspirin 81 mg Tablet,Delayed Release (Dr/Ec) 81 mg PO DAILY RF: 0 oxybutynin chloride 15 mg Tablet Extended Release 24hr 15 mg PO DAILY RF: 0 glipizide 10 mg Tablet 10 mg PO BID RF: 0 metformin 1,000 mg Tablet 1,000 mg PO BID RF: 0 lisinopril 40 mg Tablet 40 mg PO DAILY RF: 0 rosuvastatin 10 mg Tablet 10 mg PO DAILY RF: 0 Proglitazone tablet 30 mg PO DAILY RF: 0 naproxen [Naprosyn] 500 mg Tablet 500 mg PO DAILY RF: 0 Follow up/Referrals: Jaron Bradford DO [Primary Care Provider] - Provider Discharge Instructions Diet: Carb-consistent/Diabetic Activity: limited BLT 10 lbs max Skin/Wound/Dressing Care Report to your healthcare provider any signs of infection, such as:: chills, fever, night sweats, increased pain, unusual drainage and unusual redness Dressing: may change dressing and shower POD#5 Visit Report/Discharge Packet Instructions: DI for Laminectomy Stand Alone Forms: Surgery Discharge Discharge Data Primary Care Provider: Jaron Bradford Attending Provider: René Anderson Admestella Date/Time: 08/24/18 14:09 Quality VTE Deep Vein Thrombosis/Pulmonary Embolism Present on Admission: No
[2018-08-25 08:16] VITALS: BP 146/68
[2018-08-25] MEDS: LISINOPRIL 20 MG TABLET 40 MG PO (08:16)
[2018-08-25] MEDS: PIOGLITAZONE 15 MG TABLET 30 MG PO (08:16)
[2018-08-25] MEDS: DOCUSATE 100 MG CAPSULE PO (08:16)
[2018-08-25] MEDS: ROSUVASTATIN 10 MG TABLET PO (08:16)
[2018-08-25] MEDS: ASPIRIN EC 81 MG TABLET PO (08:16)
[2018-08-25] MEDS: NAPROXEN 250 MG TABLET 500 MG PO (08:16)
[2018-08-25] MEDS: METFORMIN HCL 500 MG TABLET 1000 MG PO (08:16)
[2018-08-25] MEDS: glipiZIDE 5 MG TABLET 10 MG PO (08:16)
[2018-08-25] MEDS: SODIUM CHLORIDE 0.9% FLUSH 10 ML IV (08:17)
[2018-08-25] MEDS: OXYBUTYNIN 5 MG ER TAB 15 MG PO (08:17)
--- NOTE | 2018-08-25 09:43 | OT.IP.TRT ---
Current Diagnoses Spinal stenosis, lumbar region with neurogenic claudication (08/24/18) Radiculopathy, lumbar region (08/24/18) Strain of muscle, fascia and tendon of lower back, subsequent encounter (08/24/18) Surgery Performed Operation Date: 08/23/18 07:45 Actual Procedures p L2-3, L3-4 Laminectomy - René Anderson MD Occupational Therapy Treatment Note M3 OT- IP Subjective and Pain Start: 08/24/18 17:00 Freq: Status: Active Protocol: Document 08/25/18 09:43 PJM (Rec: 08/25/18 09:58 PJ [id number]) OT- Subjective Occupational Therapy Visit Type Type Treatment Note Visit Start Time 09:15 Visit Stop Time 09:43 Total Visit Minutes 28 Notes Pt's here at end of session. Occupational Therapy Visit Comments Patient Comments I had a good shower. I feel really good today. Patient/Caregiver Goals to go home before lunch, have less pain during daily tasks OT Pain Assessment Pain When Pain Assessed After Treatment Pain Present Pain Present Pain Reported Location lower back Intensity 1 Scale Used Numeric (1 - 10) Description Aching Acute M4 OT- IP ADL's Start: 08/24/18 17:00 Freq: Status: Active Protocol: Document 08/25/18 09:43 PJM (Rec: 08/25/18 09:58 PJM [id number]) OT ADL-Grooming General Evaluation Grooming Ability Independent Areas Needing Assistance Face Washing Comments OT Grooming Comments provided education re: body mechanics while standing at sink, pt very tall and needs min cues to avoid forward bending OT ADL-Oral Care General Eval Oral Care Ability Independent Comments Oral Care Comments provided education re: body mechanics while standing at sink OT ADL-Dressing General Eval Upper Body Dressing Ability Independent Lower Body Dressing Ability Independent Areas Needing Assistance Pull-Over Shirt Underpants/Brief Pants/Shorts Socks Shoes Assistive Devices Dressing Assistive Devices Long Handled Shoe Horn Diesel Roller Operator Sock Aid Comments OT Dressing Comments Trial of wide sock aid successful and pt now indep donning socks with device. will order one online. OT ADL-Toileting General Evaluation Toileting Ability Independent Comments OT Toileting Comments standing to urinate at toilet OT ADL-Bathing Bathing Type Bathing Type Shower General Evaluation Bathing Ability Independent Areas Needing Assistance Retrieving/Setting Up Items Comments OT Bathing Comments nursing set up shower and pt completed independently prior to therapist's arrival M7 OT- IP Mobility and Balance Start: 08/24/18 17:00 Freq: Status: Active Protocol: Document 08/25/18 09:43 PJ (Rec: 08/25/18 09:58 [facility] [id number]) OT-Transfer Assessment Sit to and From Stand Sit to and from Stand Independent Transfers Transfer Ability Independent Technique Transfer Destination Chair Transfer Technique Stand Step Pivot Devices Transfer Assistive Devices Front Wheeled Walker OT- Gait Assessment Gait Gait Assistance Required: Independent Distance (Feet) 15 Assistive Devices Assistive Device Front Wheeled Walker OT- Balance Assessment Sitting Balance and Reactions Static Sitting Balance Ability Good Dynamic Sitting Balance Ability Good Standing Balance and Reactions Static Standing Balance Ability Good Dynamic Standing Balance Ability Good Comments Other Balance Tests/Deviations/Treatment with FWW : M9 OT- IP Assessment and Plan Start: 08/24/18 17:00 Freq: Status: Active Protocol: Document 08/25/18 09:43 PJM (Rec: 08/25/18 09:58 [facility] [id number]) OT Summary Assessment and Plan Potential Rehabilitation Potential Excellent Summary Progress Towards Goals Safe For Discharge Goals Met Assessment Summary All OT goals achieved today. Pt/ verbalize and demonstrate understanding of all education. Pt to d/c home this AM with supportive working . No further OT services needed. Frequency of Treatment Frequency Of Treatment Discharge Discharge Recommendations OT Discharge Recommendations Home with Assistance Home Equipment Needs to order wide sock aid, toilet paper aid and handy bar for car transfers
--- NOTE | 2018-08-25 09:44 | OT.IP.TRT ---
Current Diagnoses Spinal stenosis, lumbar region with neurogenic claudication (08/24/18) Radiculopathy, lumbar region (08/24/18) Strain of muscle, fascia and tendon of lower back, subsequent encounter (08/24/18) Surgery Performed Operation Date: 08/23/18 07:45 Actual Procedures p L2-3, L3-4 Laminectomy - René Anderson MD Occupational Therapy Treatment Note M2 OT-IP Current Condition Start: 08/24/18 17:00 Freq: Status: Active Protocol: Document 08/24/18 15:10 PJM (Rec: 08/24/18 17:21 PJM [id number]) Occupational Therapy Current Condition Current Condition Evaluation Date 08/24/18 Treatment Diagnosis decreased self care, mobility s/p L2-3, L3-4 lami's Diagnosis Onset Date 08/23/18 Post Operative Precautions Lumbar Precautions Log Roll No Twisting Limit Bending Lifting Restriction of 10 lbs Gait Belt above Incisional Area M3 OT- IP Subjective and Pain Start: 08/24/18 17:00 Freq: Status: Active Protocol: Document 08/25/18 09:43 PJM (Rec: 08/25/18 09:58 PJM [id number]) OT- Subjective Occupational Therapy Visit Type Type Treatment Note Visit Start Time 09:15 Visit Stop Time 09:43 Total Visit Minutes 28 Notes Pt's here at end of session. Occupational Therapy Visit Comments Patient Comments I had a good shower. I feel really good today. Patient/Caregiver Goals to go home before lunch, have less pain during daily tasks OT Pain Assessment Pain When Pain Assessed After Treatment Pain Present Pain Present Pain Reported Location lower back Intensity 1 Scale Used Numeric (1 - 10) Description Aching Acute M4 OT- IP ADL's Start: 08/24/18 17:00 Freq: Status: Active Protocol: Document 08/25/18 09:43 PJM (Rec: 08/25/18 09:58 PJM [id number]) OT ADL-Grooming General Evaluation Grooming Ability Independent Areas Needing Assistance Face Washing Comments OT Grooming Comments provided education re: body mechanics while standing at sink, pt very tall and needs min cues to avoid forward bending OT ADL-Oral Care General Eval Oral Care Ability Independent Comments Oral Care Comments provided education re: body mechanics while standing at sink OT ADL-Dressing General Eval Upper Body Dressing Ability Independent Lower Body Dressing Ability Independent Areas Needing Assistance Pull-Over Shirt Underpants/Brief Pants/Shorts Socks Shoes Assistive Devices Dressing Assistive Devices Long Handled Shoe [employer] Platemaker Sock Aid Comments OT Dressing Comments Trial of wide sock aid successful and pt now indep donning socks with device. will order one online. OT ADL-Toileting General Evaluation Toileting Ability Independent Comments OT Toileting Comments standing to urinate at toilet OT ADL-Bathing Bathing Type Bathing Type Shower General Evaluation Bathing Ability Independent Areas Needing Assistance Retrieving/Setting Up Items Comments OT Bathing Comments nursing set up shower and pt completed independently prior to therapist's arrival M6 OT- IP Functional Cognition Start: 08/24/18 17:00 Freq: Status: Active Protocol: Document 08/25/18 09:43 PJM (Rec: 08/25/18 09:58 [email or web address] [id number]) Cognitive Factors Limiting Selfcare Function Cognitive Ability Level of Alertness Alert Attention Span Ability Capable of Focused Attention Capable of Sustained Attention Ability to Follow Commands Able to Follow Multi-Step Commands Memory Description No Deficits Noted Safety Awareness No Deficits Noted Problem Solving Ability No deficits Noted Executive Function Ability No Deficits Noted Cognitive Comments Cognitive Assessment Comments Pt verbalizes and demonstrates understanding of all lumbar spine precautions and adpated ADL techniques. M7 OT- IP Mobility and Balance Start: 08/24/18 17:00 Freq: Status: Active Protocol: Document 08/25/18 09:43 PJM (Rec: 08/25/18 09:58 [facility] [id number]) OT-Transfer Assessment Sit to and From Stand Sit to and from Stand Independent Transfers Transfer Ability Independent Technique Transfer Destination Chair Transfer Technique Stand Step Pivot Devices Transfer Assistive Devices Front Wheeled Walker OT- Gait Assessment Gait Gait Assistance Required: Independent Distance (Feet) 15 Assistive Devices Assistive Device Front Wheeled Walker OT- Balance Assessment Sitting Balance and Reactions Static Sitting Balance Ability Good Dynamic Sitting Balance Ability Good Standing Balance and Reactions Static Standing Balance Ability Good Dynamic Standing Balance Ability Good Comments Other Balance Tests/Deviations/Treatment with FWW : M9 OT- IP Assessment and Plan Start: 08/24/18 17:00 Freq: Status: Active Protocol: Document 08/25/18 09:43 PJM (Rec: 08/25/18 09:58 PJ [id number]) OT Summary Assessment and Plan Potential Rehabilitation Potential Excellent Summary Progress Towards Goals Safe For Discharge Goals Met Assessment Summary All OT goals achieved today. Pt/ verbalize and demonstrate understanding of all education. Pt to d/c home this AM with supportive working . No further OT services needed. Frequency of Treatment Frequency Of Treatment Discharge Discharge Recommendations OT Discharge Recommendations Home with Assistance Home Equipment Needs to order wide sock aid, toilet paper aid and handy bar for car transfers
--- NOTE | 2018-08-25 11:12 | PC.NURSE ---
Pt dressed and ready for discharge home with Spouse. Pt has showered and dressing to back has been changed to a Coversite. Went over d/c instructions with Pt and Spouse, discussed d/c meds, time of last dose, reviewed stroke education, and s/s infection. Reminded Pt not to bend, lift, or twist and to logroll in/out of bed. Encouraged Pt to drink plenty of fluids to prevent constipation or dehydration and not to drive while on narcotics. Pt already has a follow up appointment made and will follow up accordingly.
--- NOTE | 2018-08-25 11:25 | PT.IPTN ---
Current Diagnoses Spinal stenosis, lumbar region with neurogenic claudication (08/24/18) Radiculopathy, lumbar region (08/24/18) Strain of muscle, fascia and tendon of lower back, subsequent encounter (08/24/18) Surgery Performed Operation Date: 08/23/18 07:45 Actual Procedures p L2-3, L3-4 Laminectomy - René Anderson MD Physical Therapy Treatment Note M2 PT-IP Current Condition Start: 08/23/18 15:50 Freq: NEEDED Status: Discharge Protocol: Document 08/23/18 15:51 RS (Rec: 08/23/18 15:59 RS [id number]) Physical Therapy Current Condition Current Condition Evaluation Date 08/23/18 Treatment Diagnosis L2-4 lami Onset Date 08/23/18 Precautions Lumbar Precautions Log Roll No Twisting Limit Bending Lifting Restriction of 10 lbs Gait Belt above Incisional Area M3 PT-IP Subjective Start: 08/23/18 15:50 Freq: NEEDED Status: Discharge Protocol: Document 08/25/18 11:20 SA (Rec: 08/25/18 11:24 SA [email or web address]) Subjective Physical Therapy Visit Type Type Treatment Note Visit Start Time 09:19 Visit Stop Time 09:34 Total Visit Minutes 15 Number of FOOD QUALITY TESTER Visits 3 Physical Therapy Visit Comments Patient Comments Pt reports he is ready to d/c home today. Patient Goals Go home. Therapy Pain Assessment Pain When Pain Assessed During Mobility Pain Present Pain Present Denied Pain M4 PT-IP Mobility and Gait Start: 08/23/18 15:50 Freq: NEEDED Status: Discharge Protocol: Document 08/25/18 11:20 SA (Rec: 08/25/18 11:24 SA [id number]) PT-Transfer Assessment Sit to and From Stand Sit to and from Stand Standby Assistance Equipment Transfer Assistive Device Gait Belt Front Wheeled Walker Transfers Transfer Destination Bed Chair Transfer Ability Level of Assist Standby Assistance Comments Mobility Comments PT SBA with transfers and bed mobility, ready for d/c home. Gait Assessment Gait Gait Assistance Required: Standby Assistance Distance (Feet) 30 Assistive Devices Assistive Device Gait Belt Front Wheeled Walker Gait Deviations General Gait Pattern Within Normal Limits Comments Gait Comments FWW dispensed and fitted to patient with trial walk and SBA. Pt safe and ready for d/c . M5 PT-IP Objective Assessments Start: 08/23/18 15:50 Freq: NEEDED Status: Discharge Protocol: Document 08/23/18 15:51 RS (Rec: 08/23/18 15:59 RS [id number]) Orientation Orientation/Cognition Level of Alertness Alert Orientation Name Age Birthday Month Date Year Day of Week Place Situation Language Function Ability No Deficits Noted Safety Awareness Understands Safety Issues Memory Description No Deficits Noted Gross Range of Motion Upper Extremity ROM Assessment Left Impaired Lower Extremity ROM Assessment Within Functional Limits Strength Upper Extremity Strength Assessment Left Impaired Lower Extremity Strength Assessment Within Functional Limits M6 PT-IP Treatment Start: 08/23/18 15:50 Freq: NEEDED Status: Discharge Protocol: Document 08/25/18 11:20 SA (Rec: 08/25/18 11:24 [email or web address]) Physical Therapy Treatment Exercises Exercises Ankle Pumps Gluteal Sets Quad Sets Education Education Provided Precautions Post-Op Packet Safety Other Treatments Other Treatment Performed Review of spinal precations with mobility and pt and both understand. M7 PT-IP Assessment and Plan Start: 08/23/18 15:50 Freq: NEEDED Status: Discharge Protocol: Document 08/25/18 11:20 (Rec: 08/25/18 11:24 [email or web address]) PT Summary Assessment and Plan Potential Rehabilitation Potential Excellent Summary Progress Towards Goals Goals Met Assessment Summary Pt has progressed well with mobility, manages stairs safely and has all needed equipment for d/c home today. Frequency of Treatment Frequency Of Treatment Twice a Day Treatment Plan Physical Therapy Treatment Plan Bed Mobility Training Transfer Training Gait Training Therapeutic Exercise Balance Retraining Post Op Education Discharge Planning Hot or Cold Pack Neuromuscular Re-ed Coordination Retraining Manual Therapy Recommendations To Nursing Amount of Assist Needed 1 Person Assist Discharge Recommendations PT Discharge Recommendations Home with 26/10 Assist Outpatient PT
--- NOTE | 2018-08-25 13:34 | CM.DPC ---
DCP: continued: Case discussed in Team Rounds this morning. JUS Portillo reported that pt had been cleared for a d/c home by therapists and that a walker has been issues from the therapy consigment closet. Review now shows that pt was eager for d/c, Dr. Anderson ok'd pt for same and he left for home with spouse driving at about 1100.
== END 2018-08-25 11:16 | disposition home or self-care (01) ==
LOC: OR 15:14
PROVIDERS: Admitting Provider Orthopaedic Surgery; Family Provider Family Medicine; PCP Family Medicine; Visit Provider Orthopaedic Surgery
PROC: (CPT 63047; principal; 2018-08-23 07:45)
DX: M48.062 Spinal stenosis, lumbar region with neurogenic claudication (principal); S39.012D Strain of muscle, fascia and tendon of lower back, subsequent encounter; M54.16 Radiculopathy, lumbar region; E11.9 Type 2 diabetes mellitus without complications; G47.33 Obstructive sleep apnea (adult) (pediatric); Z79.84 Long term (current) use of oral hypoglycemic drugs; I25.10 Atherosclerotic heart disease of native coronary artery without angina pectoris
CPT/HCPCS: 63047; 63048; 36415; 72020; 76000; 80048; 82962; 85014; 85018; 97116; 97161; 97165; 97530; 97535; G0378; J0330; J2250; J2405; J2704; J3010

== ENCOUNTER 2018-09-11 11:41 | Emergency (ER) | payer OTHER, SELFPAY ==
[2018-08-23 12:12] VITALS: BMI 40.2
[2018-09-11 11:48] VITALS: BP 162/81; PULSE 76; RESP 16; TEMP 36.5; O2SAT 98; BMI 38.9
--- NOTE | 2018-09-11 12:22 | ED.BACK ---
HPI - Back Pain/Injury <Emily Coffman PA-C - Last Filed: 09/11/18 20:35> General Chief Complaint: Back Pain/Injury Stated Complaint: weeping suture site Time Seen by Provider: 09/11/18 12:06 Source: patient and family Mode of arrival: ambulatory Limitations: no limitations History of Present Illness HPI Narrative: This 68-year-old gentleman had L2/3/4 laminectomy 2 and half weeks ago. He has been making good progress at home, however he has continued to have drainage from his surgical wound, even since sutures were removed on Wednesday, and his is concerned that this could be infected as she has been changing his dressings. They state that he has had constant drainage since the surgery. Sutures removed Wednesday and she feels like this is still continuing to drain excessively. She states that the type of drainage has not change, still slight blood tinge with thin, yellowish drainage on the dressing. No odor. No increased redness around the wound. No new pain or fever. He denies any other new complaints or changes today and states he is making progress with his walking Related Data Home Medications Medication Instructions Recorded Confirmed aspirin 81 mg PO DAILY 08/17/18 08/23/18 glipizide 10 mg PO BID 08/17/18 08/23/18 lisinopril 40 mg PO DAILY 08/17/18 08/23/18 metformin 1,000 mg PO BID 08/17/18 08/23/18 oxybutynin chloride 15 mg PO DAILY 08/17/18 08/23/18 rosuvastatin 10 mg PO DAILY 08/17/18 08/23/18 Proglitazone 30 mg PO DAILY 08/23/18 08/23/18 naproxen [Naprosyn] 500 mg PO DAILY 08/23/18 08/23/18 Previous Rx's Medication Instructions Recorded docusate sodium [DOK] 100 mg PO BID PRN #30 cap 08/24/18 hydroxyzine pamoate 25 mg PO Q4HR PRN #20 cap 08/24/18 oxycodone See Rx Instructions .ROUTE 08/24/18 .COMPLEX PRN #30 tab Allergies Allergy/AdvReac Type Severity Reaction Status Date / Time Penicillins [PENICILLINS] Allergy Severe ANAPHYLAXIS Verified 09/11/18 11:48 Sulfa (Sulfonamide Allergy Reaction Verified 09/11/18 11:48 Antibiotics) not listed Review of Systems <Emily Coffman PA-C - Last Filed: 09/11/18 20:35> Review of Systems ROS Unobtainable: All systems reviewed & are unremarkable except as noted in HPI and below PFSH <Emily Coffman PA-C - Last Filed: 09/11/18 20:35> Medical History (Updated 09/11/18 @ 20:34 by Emily Coffman PA-C) Anxiety (Chronic) Arrhythmia (Chronic) BPH (benign prostatic hyperplasia) (Chronic) CAD (coronary artery disease) (Chronic) Chronic back pain (Chronic) Depression (Chronic) Diabetes (Chronic) First degree AV block (Chronic) HLD (hyperlipidemia) (Chronic) HTN (hypertension) (Chronic) Lipoma (Chronic) Lower extremity edema (Chronic) LEONARDO (obstructive sleep apnea) (Chronic) Vitamin D deficiency (Chronic) Atypical chest pain (Resolved) Syncope (Resolved) Surgical History (Updated 09/11/18 @ 20:34 by Emily Coffman PA-C) H/O coronary angioplasty (Resolved) Hx of heart artery stent (Resolved ~04/2013) Hx of laminectomy (Resolved 08/08/15) Hx of transurethral resection of prostate (Resolved) Social History household members: spouse Smoking Status: Never smoker alcohol intake: never Social History household members: spouse Smoking Status: Never smoker alcohol intake: never Exam <Emily Coffman PA-C - Last Filed: 09/11/18 20:35> Narrative Exam Narrative: GENERAL APPEARANCE: Patient sitting comfortably, in no distress. LUNGS: Clear to auscultation bilaterally. HEART: Rate and rhythm regular without murmur, normal S1 and S2, no S3 or S4. DERMATOLOGIC: Lumbar surgical wound is minimally dehisced with patchy separation at the borders. Depth of separation no more than 2-3 mm with no gap. No erythema or warmth to touch. There is moderate serous drainage on the dressing with a little bit of blood tinge. No fluctuance or tenderness. I cannot express any drainage. Initial Vital Signs Initial Vital Signs: Vital Signs Temperature 97.7 F 09/11/18 11:48 Pulse Rate 76 09/11/18 11:48 Respiratory Rate 16 09/11/18 11:48 Blood Pressure 162/81 H 09/11/18 11:48 Pulse Oximetry 98 09/11/18 11:48 <Rico Willard DO - Last Filed: 09/13/18 08:14> Initial Vital Signs Initial Vital Signs: Vital Signs Temperature 97.7 F 09/11/18 11:48 Pulse Rate 76 09/11/18 11:48 Respiratory Rate 16 09/11/18 11:48 Blood Pressure 162/81 H 09/11/18 11:48 Pulse Oximetry 98 09/11/18 11:48 Course <Emily Coffman PA-C - Last Filed: 09/11/18 20:35> Vital Signs - 8 hr 09/11/18 11:48 Temperature 97.7 F Pulse Rate 76 Respiratory Rate 16 Blood Pressure 162/81 H Pulse Oximetry 98 <Rico Willard DO - Last Filed: 09/13/18 08:14> Vital Signs - 8 hr 09/11/18 11:48 Temperature 97.7 F Pulse Rate 76 Respiratory Rate 16 Blood Pressure 162/81 H Pulse Oximetry 98 Discharge Plan Departure Patient Disposition: Home Clinical Impression: Surgical wound dehiscence Qualifiers: Encounter type: initial encounter Qualified Code(s): T81.31XA - Disruption of external operation (surgical) wound, not elsewhere classified, initial encounter Discharge Date/Time: 09/11/18 13:00 Interventions: ED Discharge Assessment Last Done: 09/11/18 12:59 Instructions: How to Care for a Surgical Wound Activity Restrictions/Additional Instructions: You appear to have a very small amount of what we call wound ?dehiscence?. This means that the edges of the wound are a little bit, however this is mild and the wound should continue to heal from the ?bottom up? as we talked about. The discharge that you see from the wound today is called serous drainage. This thin, yellow fluid drainage is normal from a postoperative wound, and you may be seeing it for a little bit longer just because of the edges. This can have blood in it and a pink tinge as you have seen sometimes as well. The wound does not appear to be infected today. Please continue to keep it covered with an absorbent dressing. If you are lying down for a while on your stomach, you may want to try keeping it open to air when able as this may help it is feel little bit faster. Please continue to monitor for any signs of new infection such as increasing skin redness or tenderness, draining pus (that is usually thick and odorous), increasing pain or fever. You should return to your surgeon, PCP or the emergency department if these occur. Prescriptions: No Action aspirin 81 mg Tablet,Delayed Release (Dr/Ec) 81 mg PO DAILY RF: 0 oxybutynin chloride 15 mg Tablet Extended Release 24hr 15 mg PO DAILY RF: 0 glipizide 10 mg Tablet 10 mg PO BID RF: 0 metformin 1,000 mg Tablet 1,000 mg PO BID RF: 0 lisinopril 40 mg Tablet 40 mg PO DAILY RF: 0 rosuvastatin 10 mg Tablet 10 mg PO DAILY RF: 0 Proglitazone tablet 30 mg PO DAILY RF: 0 naproxen [Naprosyn] 500 mg Tablet 500 mg PO DAILY RF: 0 docusate sodium [DOK] 100 mg Capsule 100 mg PO BID PRN (Reason: constipation) Qty: 30 RF: 0 hydroxyzine pamoate 25 mg Capsule 25 mg PO Q4HR PRN (Reason: spasms) Qty: 20 RF: 0 oxycodone 5 mg Tablet See Rx Instructions .ROUTE .COMPLEX PRN (Reason: Pain, Moderate (4-6)) Qty: 30 RF: 0 Referrals: Jaron Bradford DO [Primary Care Provider] - René Anderson MD [Physician] - <Rico Willard DO - Last Filed: 09/13/18 08:14> [facility] I was immediately available in the department for consultation. Documentation has been reviewed. I agree with assessment and plan.
== END 2018-09-11 13:00 | disposition home or self-care (01) ==
PROVIDERS: Emergency Provider Internal Medicine; PCP Family Medicine
DX: T81.31XA Disruption of external operation (surgical) wound, not elsewhere classified, initial encounter (principal); Y99.0 Civilian activity done for income or pay
CPT/HCPCS: 99282

== ENCOUNTER 2018-09-23 17:56 | Inpatient (IN) | payer OTHER, SELFPAY ==
[2018-08-23 12:12] VITALS: BMI 40.2
[2018-09-23] VITALS (16 sets, daily range): BP systolic 104–179; BP diastolic 56–105; PULSE 74–95; RESP 9–20; TEMP 36.1–36.8; O2SAT 86–100; BMI 39.0
[2018-09-23] MEDS: LACTATED RINGERS 1,000 ML 100 ML IV (13:15)
--- NOTE | 2018-09-23 14:23 | PM.PREOP ---
Pre-operative Note Interval Note History & Physical reviewed/Exam performed by Physician: Yes Changes to H&P: No
[2018-09-23] MEDS: VANCOMYCIN 1,000 MG/200 ML PIGGYBACK 200 MG IV (15:25)
[2018-09-23] MEDS: SODIUM CHLORIDE IRRIG SOLUTION 3,000 ML, GENTAMICIN 240 MG IRR (15:29)
[2018-09-23] MEDS: VANCOMYCIN 1,000 MG VIAL 1000 MG TOP (15:33)
--- NOTE | 2018-09-23 16:09 | PM.OP.1 ---
Operative Date/Time/Diagnoses Date of procedure: 09/23/18 Time of procedure: 16:09 Pre-op diagnosis: Postoperative lumbar wound infection Post-op diagnosis: same Procedure & Clinicians Procedure: Irrigation debridement of lumbar wound infection Same procedure as scheduled: Yes Indications: 68-year-old male who is 1 month after his lumbar laminectomy. He presented to the clinic with ongoing drainage since his sutures had been removed. It was felt that he had a postoperative wound infection that was not healing up and this should be surgically washed out. Risks and benefits of surgery were discussed including but not limited to medical risk with heart attack stroke, DVT, PE , ongoing infection, failure to alleviate symptoms, need for further surgery. The appropriate consents were obtained. Click Yes if Unassisted: Yes Anesthesia Type: General Operative Notes Findings: 20 mL clear yellowish fluid, all superficial. Intact lumbodorsal fascia with no fluid deep to this. Closure Type: primary Specimen(s): other (Wound cultures) Estimated Blood Loss (mL): 10 Procedure in detail: Patient brought to the operating room and intubated on the stretcher. He was rolled over to the well-padded prone position on the Patrice table. Time-out was performed. Preoperative antibiotics were held for cultures. The back was prepped and draped in the standard sterile fashion. We opened up the wound and there was approximately 20 mL of clear yellowish fluid. This was cultured and sent to the laboratory. The remainder of the fluid was irrigated out. We then used a Lott to sharply debride the fatty necrosis and down on to the muscle fascia. This was cleaned back to healthy appearing tissue. The wound was then copiously irrigated. We then opened up the lumbodorsal fascia and peeled it back laterally at the level of the surgical site. There was no fluid in through here. There did not appear to be any deep infection. We then used the Lott to sharply debride the muscle as well as the remaining lamina to be thorough and then copiously irrigated this. This completed the incisional debridement. We closed the deep fascia. A deep drain was placed. Vancomycin powder was placed in the wound. Superficial and skin were closed. We used modified mattress sutures for the skin. A sterile dressing was placed. He was then rolled over, extubated, and brought to the recovery room with no complications. Complications: none Condition: stable Disposition: PACU Plan for aftercare: Inpatient, awaiting cultures. Plan for 2-3 days of IV antibiotics and send home on orals.
[2018-09-23] MEDS: HYDROMORPHONE 2 MG INJ 0.5 MG IV ×4 (16:31→17:11)
[2018-09-23] MEDS: hydrOXYzine 50 MG/ML INJ 25 MG IM (16:48)
[2018-09-23 16:52] LABS: Add Manual Diff / Slide Review NO; Basophils Absolute Auto 0 /uL (0-100); Basophils Percent Auto 0.9 % (0-2); Eosinophils Absolute Auto 200 /uL (0-450); Eosinophils Percent Auto 4.6 % (2-4); Hematocrit 32.6 % (41-53); Hemoglobin 10.7 g/dL (13.5-17.5); Lymphocytes Absolute Auto 900 /uL (1100-4500); Lymphocytes Percent Auto 17.2 % (25-40); Mean Corpuscular Hemoglobin 30.3 PG (26-34); Monocytes Absolute Auto 500 /uL (0-900); Monocytes Percent Auto 9.5 % (3-14); Neutrophils Absolute Auto 3400 /uL (1500-7000); Neutrophils Percent Auto 67.8 % (50-75); Platelet Count 194 X10^3/uL (150-400); Red Blood Cell Count 3.54 X10^6/uL (4.5-5.9); Red Cell Distribution Width 13.3 % (11.6-14.8)
--- NOTE | 2018-09-23 17:02 | SUR.PHASEI ---
Report called to [facility]
[2018-09-23 17:06] LABS: BUN Creatinine Ratio 22.5 (6-22); Blood Urea Nitrogen 27 mg/dL (9-20); C-Reactive Protein Quant 0.6 mg/dL (<1.0); Calcium 8.8 mg/dL (8.4-10.2); Carbon Dioxide 25 mmol/L (22-32); Chloride 107 mmol/L (98-107); Estimated Glomerular Filt Rate 59.9 mL/min (>60); Glucose 114 mg/dL (80-110); HEMOLYSIS < 15 (0-50); Potassium 4.3 mmol/L (3.4-5.1); Sodium 141 mmol/L (137-145)
[2018-09-23 17:24] LABS: Erythrocyte Sedimentation Rate 24 MM/HR (0-15)
--- NOTE | 2018-09-23 17:24 | SUR.PHASEI ---
Report to [facility]
[2018-09-23] MEDS: LACTATED RINGERS 1,000 ML 125 ML IV (18:19)
[2018-09-23] MEDS: VANCOMYCIN 1,250 MG in SODIUM CHLORIDE 0.9% 250 ML IV (19:03)
--- NOTE | 2018-09-23 20:05 | PC.NURSE ---
admit assessment: A&OX3. desat to 88% while sleeping, now on 2L NC 95%. VSS. dressing cdi. hemovac compressed. no nausea. ate 75 of his dinner. feet SCD's. call light in reach. bed alarm active.
[2018-09-23] MEDS: glipiZIDE 5 MG TABLET 10 MG PO (20:44)
[2018-09-23] MEDS: DOCUSATE 100 MG CAPSULE PO (20:44)
[2018-09-23] MEDS: GABAPENTIN 300 MG CAPSULE PO (20:44)
[2018-09-23] MEDS: METFORMIN HCL 500 MG TABLET 1000 MG PO (20:44)
[2018-09-24] MEDS: OXYCODONE IR 5 MG TABLET 10 MG PO ×4 (02:09→21:10)
[2018-09-24] MEDS: LACTATED RINGERS 1,000 ML 125 ML IV ×2 (02:11→12:41)
--- NOTE | 2018-09-24 02:30 | PC.NURSE ---
Button Grader Note: 0030: Awake, resting in bed on lt side. Home CPAP on. Vital signs stable. Pt denies pain at this time. IV in place in rt hand, with LR infusing at 125cc/hr. Dressings to back intact, with hemovac intact and compressed, and tubing secure under dressing. Calf SCDs on. 0210: Awake, having pain in back. Medicated with 2 Oxycodone.
[2018-09-24 06:00] VITALS: BP 131/73; PULSE 71; RESP 16; TEMP 36.4; O2SAT 98
[2018-09-24] MEDS: VANCOMYCIN 1,250 MG in SODIUM CHLORIDE 0.9% 250 ML IV ×2 (06:01→17:14)
[2018-09-24 08:15] VITALS: BP 138/88; PULSE 71; RESP 16; TEMP 36.7; O2SAT 97
[2018-09-24] MEDS: ASPIRIN EC 81 MG TABLET PO (08:35)
[2018-09-24] MEDS: DOCUSATE 100 MG CAPSULE PO ×2 (08:35→21:10)
[2018-09-24] MEDS: NAPROXEN 250 MG TABLET 500 MG PO (08:36)
[2018-09-24] MEDS: glipiZIDE 5 MG TABLET 10 MG PO ×2 (08:37→21:10)
[2018-09-24] MEDS: METFORMIN HCL 500 MG TABLET 1000 MG PO ×2 (08:37→21:10)
[2018-09-24] MEDS: PIOGLITAZONE 15 MG TABLET 30 MG PO (08:37)
[2018-09-24] MEDS: LISINOPRIL 20 MG TABLET 40 MG PO (08:38)
--- NOTE | 2018-09-24 08:39 | CM.DANOTE ---
DCP: Case received, EMR reviewed and met with patient. Introduced self and role. Information regarding baseline health received from patient. DCP template assessment completed with information currently available. Patient is a 68 year old male who admitted yesterday afternoon to the care of the surgical/orthopedic team. PCP: Dr. Cid. Payer: confirmed: [employer] and [employer]. Patient came to hospital for surgical procedure. Approximately 4 weeks ago, patient was here for L3-4, L4-5 Laminectomy. Patient had been noticing some drainage at surgical site. When sutures were removed, some yellow purlent discharge was noted from site. Patient here for lumbar wound infection, and had surgical procedure yesterday. Met with patient in room. Alert and oriented, pleasant. Patient lives in [place] with his spouse, Misty. He stated, he has been recuperating well from his last surgery, and increasing walking. He has also been driving. He does have a walker and cane available as well. P: DCP to continue to follow. Should be able to go home when he is medically stable. Will also consult with physical therapy team. Eve Yang RN/Batch Mixer
--- NOTE | 2018-09-24 09:05 | PM.PNPO.1 ---
Subjective Date Patient Seen: 09/24/18 Time Patient Seen: 09:06 Interval history: He is doing well. Some back pain. Exam Vital Signs (past 8 hours): - 09/24/18 06:00 09/24/18 08:15 Temperature 97.6 F 98.0 F Pulse Rate 71 71 Respiratory Rate 16 16 Blood Pressure 131/73 138/88 Pulse Oximetry 98 97 Oxygen Delivery Method Room Air Oxygen Flow Rate 0 Const Orientation: alert and oriented x3 Back/Spine/Pelvis Other: Dressing with minimal dry drainage. 5/5 motor both lower extremities. 2 mL drain output Objective Labs Result Diagrams: 09/23/18 16:40 09/23/18 16:40 Labs: Laboratory Results - last 24 hr 09/23/18 09/23/18 16:40 16:40 WBC 5.0 RBC 3.54 L Hgb 10.7 L Hct 32.6 L MCV 92.0 MCH 30.3 MCHC 33.0 RDW 13.3 Plt Count 194 Neut % (Auto) 67.8 Lymph % (Auto) 17.2 L Whiteside % (Auto) 9.5 Eos % (Auto) 4.6 H Baso % (Auto) 0.9 Neut # (Auto) 3400 Lymph # (Auto) 900 L Whiteside # (Auto) 500 Eos # (Auto) 200 Baso # (Auto) 0 ESR 24 H Sodium 141 Potassium 4.3 Chloride 107 Carbon Dioxide 25 BUN 27 H Creatinine 1.20 Estimated GFR 59.9 L BUN/Creatinine Ratio 22.5 H Glucose 114 H Calcium 8.8 C-Reactive Protein 0.6 Assessment & Plan Post-op Postoperative Procedures Operation Date: 09/23/18 14:30 Actual Procedures Side Surgeon p Incision and Drainage Wound/Spine René Anderson MD His Gram stain had no organisms and occasional white blood cells. Cultures are still pending. Maintain on IV vancomycin now. Plan to discharge home on oral antibiotics in the next few days based on his culture results.
--- NOTE | 2018-09-24 09:30 | PT.IIE ---
Current Diagnoses Infection following a procedure, other surgical site, initial encounter (09/23/18) Surgery Performed Operation Date: 09/23/18 14:30 Actual Procedures p Incision and Drainage Wound/Spine - René Anderson MD Surgical History (Last Updated 09/11/18 @ 20:34 by Emily Coffman PA-C) H/O coronary angioplasty (Resolved) Hx of heart artery stent (Resolved ~04/2013) Hx of laminectomy (Resolved 08/08/15) Hx of transurethral resection of prostate (Resolved) Medical History (Last Updated 09/11/18 @ 20:34 by Emily Coffman PA-C) Anxiety (Chronic) Arrhythmia (Chronic) BPH (benign prostatic hyperplasia) (Chronic) CAD (coronary artery disease) (Chronic) Chronic back pain (Chronic) Depression (Chronic) Diabetes (Chronic) First degree AV block (Chronic) HLD (hyperlipidemia) (Chronic) HTN (hypertension) (Chronic) Lipoma (Chronic) Lower extremity edema (Chronic) LEONARDO (obstructive sleep apnea) (Chronic) Vitamin D deficiency (Chronic) Atypical chest pain (Resolved) Syncope (Resolved) Physical Therapy Inpatient Evaluation/Re-Eval M1 PT/OT-IP Prior Functional Status Start: 09/24/18 11:40 Freq: NEEDED Status: Active Protocol: Document 09/24/18 09:30 AB (Rec: 09/24/18 11:58 AB [id number]) Medical Review Prior Functional Status Medical History Reviewed Yes Diet/Fluid Consistency Regular Communication able to make needs known Mobility and Gait pt stated prior to first back surgery last august 2018, he was independent with all mobilities and ambulation without AD. pt went home after first back surgery and has been using a FWW for mobility and only lately, per pt that he started to ambulate without AD. Social History Household Members spouse Living Arrangements House Number of Floors (Floors) One Floor Number of Stairs To Enter/Railing? 3 steps to enter with bilateral rails Home Environment Standard Height Toilet Walk in Shower Home Equipment Front Wheel Walker Straight Cane Raised Toilet Seat Without Armrests Hand Held Shower Grab Bars In Shower Additional Social History Comment pt has an adjustable bed at home M2 PT-IP Current Condition Start: 09/24/18 11:40 Freq: NEEDED Status: Active Protocol: Document 09/24/18 09:30 AB (Rec: 09/24/18 11:58 AB [id number]) Physical Therapy Current Condition Current Condition Evaluation Date 09/24/18 Treatment Diagnosis s/p I&D of lumbar infection; difficulty in walking Onset Date 09/23/18 Precautions Lumbar Precautions Log Roll No Twisting Limit Bending Lifting Restriction of 10 lbs Gait Belt above Incisional Area M3 PT-IP Subjective Start: 09/24/18 11:40 Freq: NEEDED Status: Active Protocol: Document 09/24/18 09:30 AB (Rec: 09/24/18 11:58 AB [id number]) Subjective Physical Therapy Visit Type Type Initial Evaluation Visit Start Time 09:30 Visit Stop Time 10:00 Total Visit Minutes 30 Number of JOURNEYMAN PAINTER Visits 0 Physical Therapy Visit Comments Patient Comments pt agreeable to do PT Therapy Pain Assessment Pain When Pain Assessed At Rest Pain Present Pain Present Pain Reported Location lower back Intensity 7 Scale Used Numeric (1 - 10) Pain Management Techniques Re-positioning Timing of Activity with Medications M4 PT-IP Mobility and Gait Start: 09/24/18 11:40 Freq: NEEDED Status: Active Protocol: Document 09/24/18 09:30 AB (Rec: 09/24/18 11:58 AB [id number]) PT-Bed Mobility Assessment Rolling Type of Rolling Log Rolling Level of Assist Standby Assistance Supine to Sit Supine to Sit Standby Assistance Scooting Scooting to Edge of Bed Standby Assistance PT-Transfer Assessment Sit to and From Stand Sit to and from Stand Standby Assistance 1 Person Assistance Use of Upper Extremities Equipment Transfer Assistive Device Gait Belt Front Wheeled Walker Orthotic/Prosthetic Devices or Brace: No Transfers Transfer Destination Chair Transfer Technique pt ambulated using FWW Transfer Ability Level of Assist Standby Assistance Gait Assessment Gait Gait Assistance Required: Standby Assistance Distance (Feet) 200 Able to Maintain Weight Bearing Status Yes During Gait Assistive Devices Assistive Device Gait Belt Front Wheeled Walker Orthotic/Prosthetic Devices or Brace: No Factors Limiting Gait Function Factors Limiting Gait Function Limited Range of Motion Pain PT-Balance Assessment Sitting Balance and Reactions Static Sitting Balance Ability Good Dynamic Sitting Balance Ability Good Standing Balance and Reactions Static Standing Balance Ability Fair Dynamic Standing Balance Ability Fair Device Used FWW M5 PT-IP Objective Assessments Start: 09/24/18 11:40 Freq: NEEDED Status: Active Protocol: Document 09/24/18 09:30 AB (Rec: 09/24/18 11:58 AB [id number]) Orientation Orientation/Cognition Level of Alertness Alert Orientation Name Age Birthday Month Date Year Day of Week Place Situation Language Function Ability No Deficits Noted Safety Awareness Understands Safety Issues Memory Description No Deficits Noted Gross Range of Motion Lower Extremity ROM Assessment Within Functional Limits Strength Lower Extremity Strength Assessment Within Functional Limits Coordination Assessment Gross Coordination Gross Coordination WNL Sensation Assessment Sensation Gross Sensation WNL Muscle Tone Muscle Tone WNL Yes M6 PT-IP Treatment Start: 09/24/18 11:40 Freq: NEEDED Status: Active Protocol: Document 09/24/18 09:30 AB (Rec: 09/24/18 11:58 AB [id number]) Physical Therapy Treatment Education Education Provided Precautions Weight Bearing Status Safety M7 PT-IP Assessment and Plan Start: 09/24/18 11:40 Freq: NEEDED Status: Active Protocol: Document 09/24/18 09:30 AB (Rec: 09/24/18 11:58 AB [id number]) PT Summary Assessment and Plan Potential Rehabilitation Potential Good Status of Condition at Evaluation Stable Summary Impairments Pain ROM Strength Balance Coordination Sensation Tone Cognition Bed Mobility Transfers Gait Activity Tolerance Assessment Summary pt requiring SBA with mobility . pt plans to go home and spouse will assist him at home . will complete stair climbing training prior to d/c . Goals Bed Mobility Goal Independent Transfer Goal Independent Front Wheeled Walker Gait Goal Independent Front Wheel Walker Gait Distance 300 Other Goals up/down 3 steps using B rails SBA Days to Meet Goals 3 Frequency of Treatment Frequency Of Treatment Twice a Day Treatment Plan Physical Therapy Treatment Plan Bed Mobility Training Transfer Training Gait Training Therapeutic Exercise Balance Retraining Post Op Education Discharge Planning Hot or Cold Pack Neuromuscular Re-ed Coordination Retraining Manual Therapy Recommendations To Nursing Amount of Assist Needed Standby Assistance Discharge Recommendations PT Discharge Recommendations Home with Assistance
[2018-09-24] MEDS: OXYBUTYNIN 5 MG ER TAB 15 MG PO (10:23)
[2018-09-24 11:20] VITALS: BP 122/62; PULSE 78; RESP 18; TEMP 36.8; O2SAT 97
--- NOTE | 2018-09-24 12:38 | OT.IP.EVAL ---
Current Diagnoses Infection following a procedure, other surgical site, initial encounter (09/23/18) Surgery Performed Operation Date: 09/23/18 14:30 Actual Procedures p Incision and Drainage Wound/Spine - René Anderson MD Past Medical History (Last Updated 09/11/18 @ 20:34 by Emily Coffman PA-C) Anxiety (Chronic) Arrhythmia (Chronic) BPH (benign prostatic hyperplasia) (Chronic) CAD (coronary artery disease) (Chronic) Chronic back pain (Chronic) Depression (Chronic) Diabetes (Chronic) First degree AV block (Chronic) HLD (hyperlipidemia) (Chronic) HTN (hypertension) (Chronic) Lipoma (Chronic) Lower extremity edema (Chronic) LEONARDO (obstructive sleep apnea) (Chronic) Vitamin D deficiency (Chronic) Atypical chest pain (Resolved) Syncope (Resolved) Surgical History (Last Updated 09/11/18 @ 20:34 by Emily Coffman PA-C) H/O coronary angioplasty (Resolved) Hx of heart artery stent (Resolved ~04/2013) Hx of laminectomy (Resolved 08/08/15) Hx of transurethral resection of prostate (Resolved) Occupational Therapy Inpatient Evaluation/Re-Eval M1 PT/OT-IP Prior Functional Status Start: 09/24/18 11:40 Freq: NEEDED Status: Active Protocol: Document 09/24/18 12:26 CGR (Rec: 09/24/18 12:36 CGR [email or web address]) Medical Review Prior Functional Status Medical History Reviewed Yes Diet/Fluid Consistency Regular Communication able to make needs known Mobility and Gait pt stated prior to first back surgery last august 2018, he was independent with all mobilities and ambulation without AD. pt went home after first back surgery and has been using a FWW for mobility and only lately, per pt that he started to ambulate without AD. Activities of Daily Living and IADL's Pt states he does everything for himself except socks which his dons for him. Social History Household Members spouse Living Arrangements House Number of Floors (Floors) One Floor Number of Stairs To Enter/Railing? 3 steps to enter with bilateral rails Home Environment Standard Height Toilet Walk in Shower Home Equipment Front Wheel Walker Straight Cane Raised Toilet Seat Without Armrests Hand Held Shower Grab Bars In Shower Employment Status Retired Additional Social History Comment pt has an adjustable bed at home M2 OT-IP Current Condition Start: 09/24/18 12:26 Freq: Status: Active Protocol: Document 09/24/18 12:26 CGR (Rec: 09/24/18 12:36 CGR [email or web address]) Occupational Therapy Current Condition Current Condition Evaluation Date 09/24/18 Treatment Diagnosis Post op lumbar wound infection s/p I&D Diagnosis Onset Date 09/23/18 Post Operative Precautions Lumbar Precautions Log Roll No Twisting Limit Bending Lifting Restriction of 10 lbs Gait Belt above Incisional Area M3 OT- IP Subjective and Pain Start: 09/24/18 12:26 Freq: Status: Active Protocol: Document 09/24/18 12:26 CGR (Rec: 09/24/18 12:36 CGR [email or web address]) OT- Subjective Occupational Therapy Visit Type Type Initial Evaluation Visit Start Time 09:40 Visit Stop Time 10:25 Total Visit Minutes 45 Notes Partial co-eval with P.T. OT Pain Assessment Pain When Pain Assessed At Rest Pain Present Pain Present Pain Reported Location lower back Intensity 7 Scale Used Numeric (1 - 10) M4 OT- IP ADL's Start: 09/24/18 12:26 Freq: Status: Active Protocol: Document 09/24/18 12:26 CGR (Rec: 09/24/18 12:36 CGR [email or web address]) OT ADL-Grooming General Evaluation Grooming Ability Independent OT ADL-Oral Care General Eval Oral Care Ability Independent OT ADL-Dressing General Eval Upper Body Dressing Ability Independent Lower Body Dressing Ability Maximum Assistance Areas Needing Assistance Socks OT ADL-Toileting General Evaluation Toileting Ability Independent OT ADL-Bathing Comments OT Bathing Comments Not performed at eval M5 OT- IP IADL's Start: 09/24/18 12:26 Freq: Status: Active Protocol: Document 09/24/18 12:26 CGR (Rec: 09/24/18 12:36 CGR [email or web address]) OT-Instrumental Activities of Daily Living Deficits IADL Deficits Identified No Deficits Home Safety Awareness Awareness of Need for Assistance at Home Good Awareness Ability to Problem Solve Emergency Able to Problem Solve Situations Medication Management Medication Management No Deficits Identified Money Management Money Management No Deficits Identified Meal Preparation Meal Preparation No Deficits Identified Truck Body Builder Truck Body Builder No Deficits Identified Driving Driving Caregiver Provides Assist M6 OT- IP Functional Cognition Start: 09/24/18 12:26 Freq: Status: Active Protocol: Document 09/24/18 12:26 CGR (Rec: 09/24/18 12:36 CGR [email or web address]) Cognitive Factors Limiting Selfcare Function Cognitive Ability Level of Alertness Alert Patient Orientation Name Age Birthday Month Date Year Day of Week Place Situation Attention Span Ability Capable of Focused Attention Capable of Sustained Attention Ability to Follow Commands Able to Follow Multi-Step Commands Memory Description No Deficits Noted Safety Awareness No Deficits Noted Problem Solving Ability No deficits Noted Executive Function Ability No Deficits Noted Abstract Thinking Ability No Deficits Noted OT- Vision and Hearing OT- Hearing Assessment OT- Hearing Assessment WFL OT- Vision Assessment Visual Acuity Glasses All The Time Visual Attentiveness WFL Occular Pursuits WFL Visual Convergence WFL Visual Garces WFL Vision Assessment Comments Pt wears bifocals M7 OT- IP Mobility and Balance Start: 09/24/18 12:26 Freq: Status: Active Protocol: Document 09/24/18 12:26 CGR (Rec: 09/24/18 12:36 CGR [email or web address]) OT- Bed Mobility Assessment Rolling Type of Rolling Log Rolling Level of Assistance Standby Assistance Supine to Sit Supine to Sit Assist Standby Assistance OT-Transfer Assessment Sit to and From Stand Sit to and from Stand Standby Assistance Transfers Transfer Ability Standby Assistance Technique Transfer Destination Bed Chair Devices Transfer Assistive Devices Gait Belt Front Wheeled Walker OT- Gait Assessment Gait Gait Assistance Required: Standby Assistance Assistive Devices Assistive Device Gait Belt Front Wheeled Walker OT- Balance Assessment Sitting Balance and Reactions Static Sitting Balance Ability Normal Dynamic Sitting Balance Ability Normal Standing Balance and Reactions Static Standing Balance Ability Normal Dynamic Standing Balance Ability Normal M8 OT- IP Objective Assessments Start: 09/24/18 12:26 Freq: Status: Active Protocol: Document 09/24/18 12:26 CGR (Rec: 09/24/18 12:36 CGR [email or web address]) OT Gross Range of Motion Upper Extremity Range of Motion Assessment Within Functional Limits ROM Impairments Restrictions to the L shld but states this is from a previous injury and is getting out patient P.T. to address. OT Strength Upper Extremity Strength Assessment Left Impaired Comments Strength Comments L UE is weaker than RUE. Pt states this is from a previous injury and is getting out patient P.T. to address. OT- Coordination Assessment Upper Extremity Finger to Nose Test Within Functional Limits Finger Tapping Test Within Functional Limits OT-Muscle Tone Assessment Muscle Tone WNL Yes OT Sensation Assessment Comments Summary Comments No deficits noted Edema Edema Absent M9 OT- IP Assessment and Plan Start: 09/24/18 12:26 Freq: Status: Active Protocol: Document 09/24/18 12:26 CGR (Rec: 09/24/18 12:36 CGR [email or web address]) OT Summary Assessment and Plan Potential Rehabilitation Potential Excellent Analytic Complexity at Evaluation Low Summary OT Impairments Pain Progress Towards Goals Safe For Discharge Assessment Summary Pt is knowledgeable on his back precautions and has excellent support at home. He states that he knows how to use the LB AD for dressing but receives some assist from his . No further needs at this time. Pt has all equipment set up at home. Frequency of Treatment Frequency Of Treatment Discharge Discharge Recommendations OT Discharge Recommendations Home with Assistance Home Equipment Needs No needs
[2018-09-24] MEDS: INSULIN ASPART 100 UNIT/ML INSULN PEN SUBCUT (12:44)
--- NOTE | 2018-09-24 13:55 | PT.IPTN ---
Current Diagnoses Infection following a procedure, other surgical site, initial encounter (09/23/18) Surgery Performed Operation Date: 09/23/18 14:30 Actual Procedures p Incision and Drainage Wound/Spine - René Anderson MD Physical Therapy Treatment Note M2 PT-IP Current Condition Start: 09/24/18 11:40 Freq: NEEDED Status: Active Protocol: Document 09/24/18 09:30 AB (Rec: 09/24/18 11:58 AB [id number]) Physical Therapy Current Condition Current Condition Evaluation Date 09/24/18 Treatment Diagnosis s/p I&D of lumbar infection; difficulty in walking Onset Date 09/23/18 Precautions Lumbar Precautions Log Roll No Twisting Limit Bending Lifting Restriction of 10 lbs Gait Belt above Incisional Area M3 PT-IP Subjective Start: 09/24/18 11:40 Freq: NEEDED Status: Active Protocol: Document 09/24/18 13:55 AB (Rec: 09/24/18 15:06 AB [id number]) Subjective Physical Therapy Visit Type Type Treatment Note Visit Start Time 13:55 Visit Stop Time 14:27 Total Visit Minutes 32 Number of WET PROCESS MILLER HEAD Visits 0 Physical Therapy Visit Comments Patient Comments pt agreeable to do PT Therapy Pain Assessment Pain When Pain Assessed At Rest Pain Present Pain Present Pain Reported Location lower back Intensity 5 Scale Used Numeric (1 - 10) Pain Management Techniques Re-positioning Timing of Activity with Medications M4 PT-IP Mobility and Gait Start: 09/24/18 11:40 Freq: NEEDED Status: Active Protocol: Document 09/24/18 13:55 AB (Rec: 09/24/18 15:06 AB [id number]) PT-Bed Mobility Assessment Rolling Type of Rolling Log Rolling Level of Assist Standby Assistance Supine to Sit Supine to Sit Standby Assistance Sit to Supine Sit to Supine Standby Assistance Scooting Scooting to Edge of Bed Standby Assistance PT-Transfer Assessment Sit to and From Stand Sit to and from Stand Standby Assistance Equipment Transfer Assistive Device Gait Belt Front Wheeled Walker Orthotic/Prosthetic Devices or Brace: No Gait Assessment Gait Gait Assistance Required: Standby Assistance Distance (Feet) 200 Able to Maintain Weight Bearing Status Yes During Gait Assistive Devices Assistive Device Gait Belt Front Wheeled Walker Orthotic/Prosthetic Devices or Brace: No Factors Limiting Gait Function Factors Limiting Gait Function Decreased Strength Pain Poor Balance Stair Climbing Assessment Evaluation Level of Assist On Stairs Standby Assistance Devices Stair Climbing Assistive Devices Left Railing Right Railing Technique/Endurance Stair Climbing Direction Ascend and Descend Stair Climbing Technique Step to Step Number of Steps Climbed 3 Stair Climbing Set # Repetitions (reps) 1 M5 PT-IP Objective Assessments Start: 09/24/18 11:40 Freq: NEEDED Status: Active Protocol: Document 09/24/18 09:30 AB (Rec: 09/24/18 11:58 AB [id number]) Orientation Orientation/Cognition Level of Alertness Alert Orientation Name Age Birthday Month Date Year Day of Week Place Situation Language Function Ability No Deficits Noted Safety Awareness Understands Safety Issues Memory Description No Deficits Noted Gross Range of Motion Lower Extremity ROM Assessment Within Functional Limits Strength Lower Extremity Strength Assessment Within Functional Limits Coordination Assessment Gross Coordination Gross Coordination WNL Sensation Assessment Sensation Gross Sensation WNL Muscle Tone Muscle Tone WNL Yes M6 PT-IP Treatment Start: 09/24/18 11:40 Freq: NEEDED Status: Active Protocol: Document 09/24/18 13:55 AB (Rec: 09/24/18 15:06 AB [id number]) Physical Therapy Treatment Education Education Provided Precautions Safety M7 PT-IP Assessment and Plan Start: 09/24/18 11:40 Freq: NEEDED Status: Active Protocol: Document 09/24/18 13:55 AB (Rec: 09/24/18 15:06 AB [id number]) PT Summary Assessment and Plan Potential Rehabilitation Potential Good Status of Condition at Evaluation Stable Summary Impairments Pain ROM Strength Balance Bed Mobility Transfers Gait Activity Tolerance Progress Towards Goals Progressing Toward Goals Assessment Summary pt doing well with mobility. tx frequency will be decreased to once a day and pt instructed to ambulate with nurses. pt agreed. pt plans to go home with spouse to assist him. Goals Bed Mobility Goal Independent Transfer Goal Independent Front Wheeled Walker Gait Goal Independent Front Wheel Walker Gait Distance 300 Other Goals up/down 3 steps using B rails SBA Days to Meet Goals 3 Frequency of Treatment Frequency Of Treatment Once a Day Treatment Plan Physical Therapy Treatment Plan Bed Mobility Training Transfer Training Gait Training Therapeutic Exercise Balance Retraining Post Op Education Discharge Planning Hot or Cold Pack Neuromuscular Re-ed Coordination Retraining Manual Therapy Recommendations To Nursing Amount of Assist Needed Standby Assistance Discharge Recommendations PT Discharge Recommendations Home with Assistance
--- NOTE | 2018-09-24 15:12 | PC.NURSE ---
Shift summary: Alert and oriented X3. Denies fever, chills or other s/sx infection. Dressing to mid low back C/D/I, hemovac patent and compressed to suction with scant sero-sanguinous drainage. CMS+, denies paresthesias. Pain well-managed with 10 mg Oxycodone. Tolerating PO's without N/V. IVF turned down to TKO (rather than saline locking) to help keep fragile IV site patent. Up with stand-by assist and FWW. Calls appropriately with needs. Light in reach, bed alarm on.
[2018-09-24 16:00] VITALS: BP 127/67; PULSE 69; RESP 16; TEMP 36.4; O2SAT 96
[2018-09-24 20:00] VITALS: BP 133/77; PULSE 103; RESP 20; TEMP 36.3; O2SAT 97
[2018-09-24] MEDS: SENNOSIDES 8.6 MG TABLET 17.2 MG PO (21:10)
[2018-09-24] MEDS: GABAPENTIN 300 MG CAPSULE PO (21:10)
[2018-09-25 01:00] VITALS: BP 147/79; PULSE 71; RESP 18; TEMP 37.6; O2SAT 96
--- NOTE | 2018-09-25 02:02 | PC.NURSE ---
Addendum entered by Raisa Mathews R.N. 09/25/18 06:42: Assessed right hand IV. IV infiltrated, site is leaking and right hand is swollen. [facility] called and recommended cool compression four times a day with fifteen minute intervals. Vancomycin stopped and IV line discontinued with cool compress applied to the right hand. Original Note: Patient refused foot/ankle SCD's while sleeping. Patient states they keep me awake; I can't sleep with them on. Patient educated on the importance of wearing the SCD's by explaining that the device assists with lower extremity blood circulation and the prevention of clots. Patient understood education and is aware of the mentioned risks.
[2018-09-25] MEDS: hydrOXYzine pamoate 25 MG CAPSULE PO (02:17)
[2018-09-25] MEDS: OXYCODONE IR 5 MG TABLET 10 MG PO ×2 (02:17→09:54)
[2018-09-25 05:00] VITALS: BP 122/62; PULSE 72; RESP 18; TEMP 36.8; O2SAT 94
[2018-09-25] MEDS: VANCOMYCIN TROUGH 1 REQUEST MISC (06:06)
[2018-09-25] MEDS: VANCOMYCIN 1,250 MG in SODIUM CHLORIDE 0.9% 250 ML IV (06:07)
[2018-09-25 06:29] LABS: Vancomycin Trough 17.5 ug/mL (10-20)
[2018-09-25 07:30] VITALS: BP 145/77; PULSE 79; RESP 16; TEMP 36.4; O2SAT 96
--- NOTE | 2018-09-25 08:08 | PM.PNPO.1 ---
Subjective Date Patient Seen: 09/25/18 Time Patient Seen: 08:08 Interval history: He is doing well. A little uncomfortable when he rolls over in bed. Exam Vital Signs (past 8 hours): - 09/25/18 01:00 09/25/18 05:00 Temperature 99.7 F H 98.3 F Pulse Rate 71 72 Respiratory Rate 18 18 Blood Pressure 147/79 H 122/62 Pulse Oximetry 96 94 Oxygen Delivery Method Room Air Oxygen Flow Rate 0 Const Orientation: alert and oriented x3 Back/Spine/Pelvis Other: CDI, 5/5 motor BLE drain 20/0/0 Objective Labs Result Diagrams: 09/23/18 16:40 09/23/18 16:40 Labs: Laboratory Results - last 24 hr 09/25/18 05:50 Vancomycin Trough 17.5 Assessment & Plan Post-op Postoperative Procedures Operation Date: 09/23/18 14:30 Actual Procedures Side Surgeon p Incision and Drainage Wound/Spine René Anderson MD Cultures this morning - NGTD He has not had any growth after 2 days. I do not think the plates are going to grow anything out, but we will continue to check them. At this point I am going to send him home on empiric antibiotics. He is penicillin and sulfa allergic. I will send him out with clindamycin. Follow up in the office later on this week.
--- NOTE | 2018-09-25 08:42 | CM.DPC ---
DCP Cont: Patient is to be discharged home today on oral antibiotic. He will be following up with orthopedist in their office. Patient has no needs upon discharge. P: Patient is to be discharged home on oral antibiotics today. Eve Yang RN/Counselor Education Professor
[2018-09-25] MEDS: PIOGLITAZONE 15 MG TABLET 30 MG PO (09:54)
[2018-09-25] MEDS: OXYBUTYNIN 5 MG ER TAB 15 MG PO (09:55)
[2018-09-25] MEDS: LISINOPRIL 20 MG TABLET 40 MG PO (09:55)
[2018-09-25] MEDS: DOCUSATE 100 MG CAPSULE PO (09:55)
[2018-09-25] MEDS: glipiZIDE 5 MG TABLET 10 MG PO (09:55)
[2018-09-25] MEDS: ASPIRIN EC 81 MG TABLET PO (09:55)
[2018-09-25] MEDS: METFORMIN HCL 500 MG TABLET 1000 MG PO (09:55)
[2018-09-25] MEDS: NAPROXEN 250 MG TABLET 500 MG PO (09:55)
--- NOTE | 2018-09-25 11:11 | PC.NURSE ---
Discharge: IV dc'd intact. Drain dc'd and covered with gauze/tegaderm dressing. Midline back incision covered with Coversite dressing, incision was well-approximated with sutures, no bleeding/drainage/erythema noted. Reviewed med list and instructions thoroughly. Instructed to call MD w/ s/sx infection, uncontrolled pain or other concerns. Instructed to call ortho office Wednesday morning to schedule follow up within 1 week. Instructed to leave dressing in place until follow up (unless it starts to fall off or becomes wet with drainage in which case they were instructed to call the ortho office). Instructed to take abx as directed and for full course. Patient and verbalized understanding of all d/c info and stated no further questions. Taken out to private vehicle via wheelchair. All personal belongings sent with patient.
== END 2018-09-25 11:15 | disposition home or self-care (01) | DRG 711 ==
PROVIDERS: Admitting Provider Orthopaedic Surgery; PCP Physician Assistant; Visit Provider Orthopaedic Surgery
PROC: 0KBG0ZZ Excision of Left Trunk Muscle, Open Approach (ICD-10-PCS; CPT 10180; principal; 2018-09-23 14:30)
DX: T81.49XA Infection following a procedure, other surgical site, initial encounter (principal); G47.33 Obstructive sleep apnea (adult) (pediatric); E66.9 Obesity, unspecified; I10 Essential (primary) hypertension; E11.9 Type 2 diabetes mellitus without complications; F32.9 Major depressive disorder, single episode, unspecified; I25.10 Atherosclerotic heart disease of native coronary artery without angina pectoris; Z79.84 Long term (current) use of oral hypoglycemic drugs; Z68.39 Body mass index [BMI] 39.0-39.9, adult
CPT/HCPCS: 36415; 80048; 80202; 82962; 85025; 85651; 86140; 87070; 87075; 87205; 97116; 97161; 97165; 97530; 97535; J0330; J1170; J2250; J2405; J2704; J3010; J3410

== ENCOUNTER 2018-11-03 10:52 | Inpatient (IN) | payer OTHER, SELFPAY ==
[2018-09-23 18:00] VITALS: BMI 39.0
[2018-11-02 14:46] VITALS: BMI 40.2
[2018-11-03] VITALS (21 sets, daily range): BP systolic 125–186; BP diastolic 54–110; PULSE 77–105; RESP 12–20; TEMP 36.3–36.6; O2SAT 94–100; BMI 40.2; BMI 39.6
[2018-11-03] MEDS: LACTATED RINGERS 1,000 ML 42 ML IV ×2 (10:23→11:54)
--- NOTE | 2018-11-03 10:27 | PM.PREOP ---
Pre-operative Note Interval Note History & Physical reviewed/Exam performed by Physician: Yes Changes to H&P: No
--- NOTE | 2018-11-03 10:28 | PM.PREOP ---
Pre-operative Note Interval Note History & Physical reviewed/Exam performed by Physician: Yes Changes to H&P: No
[2018-11-03 10:52] LABS: Add Manual Diff / Slide Review NO; Basophils Absolute Auto 0 /uL (0-100); Basophils Percent Auto 0.7 % (0-2); Eosinophils Absolute Auto 100 /uL (0-450); Eosinophils Percent Auto 2.7 % (2-4); Hematocrit 35.3 % (41-53); Hemoglobin 11.7 g/dL (13.5-17.5); Lymphocytes Absolute Auto 600 /uL (1100-4500); Lymphocytes Percent Auto 12.5 % (25-40); Mean Corpuscular HGB Conc 33.1 % (30-36); Mean Corpuscular Hemoglobin 29.8 PG (26-34); Mean Corpuscular Volume 89.9 fL (80-100); Monocytes Absolute Auto 400 /uL (0-900); Monocytes Percent Auto 8.5 % (3-14); Neutrophils Absolute Auto 3600 /uL (1500-7000); Neutrophils Percent Auto 75.6 % (50-75); Platelet Count 272 X10^3/uL (150-400); Red Blood Cell Count 3.92 X10^6/uL (4.5-5.9); Red Cell Distribution Width 13.3 % (11.6-14.8); White Blood Cell Count 4.8 X10^3/uL (4.5-11.0)
[2018-11-03 11:06] LABS: BUN Creatinine Ratio 25.4 (6-22); Blood Urea Nitrogen 33 mg/dL (9-20); C-Reactive Protein Quant 0.6 mg/dL (<1.0); Calcium 8.9 mg/dL (8.4-10.2); Carbon Dioxide 26 mmol/L (22-32); Chloride 104 mmol/L (98-107); Estimated Glomerular Filt Rate 54.6 mL/min (>60); Glucose 143 mg/dL (80-110); Sodium 139 mmol/L (137-145)
[2018-11-03 11:07] LABS: HEMOLYSIS 130 (0-50)
[2018-11-03 11:09] LABS: Potassium 4.9 mmol/L (3.4-5.1)
[2018-11-03 11:11] LABS: Erythrocyte Sedimentation Rate 22 MM/HR (0-15)
[2018-11-03] MEDS: VANCOMYCIN 1,000 MG/200 ML PIGGYBACK 200 MG IV (11:37)
[2018-11-03] MEDS: SODIUM CHLORIDE 0.9% 1,000 ML, GENTAMICIN 80 MG IRR (11:52)
[2018-11-03] MEDS: VANCOMYCIN 1,000 MG VIAL 1000 MG TOP (11:53)
--- NOTE | 2018-11-03 12:08 | PM.OP.1 ---
Operative Date/Time/Diagnoses Date of procedure: 11/03/18 Time of procedure: 12:08 Pre-op diagnosis: postoperative wound infection Post-op diagnosis: same Procedure & Clinicians Procedure: lumbar wound incisional irrigation and debridement Same procedure as scheduled: Yes Indications: 68-year-old male status post lumbar decompression. He had wound breakdown and was washed out several weeks ago. He had been doing well but then called up yesterday with recurrent breakdown of his wound and some drainage. It is felt that he would benefit from repeat irrigation debridement. Risks and benefits of surgery were discussed and appropriate consents were obtained. Surgeon: René Anderson Click Yes if Unassisted: Yes Anesthesia Type: General Operative Notes Findings: None Closure Type: primary Specimen(s): other (Lumbar wound cultures) Estimated Blood Loss (mL): 10 Procedure in detail: Patient was brought to the operating room and intubated on the table. He was rolled over the well-padded prone position. The back was prepped and draped in the standard sterile fashion. Preoperative antibiotics were held for culture results. A time-out was performed. I made a 8 cm elliptical incision removing his previous scar. We used Bovie to come down through the fatty tissue. There did not appear to be any fluid collection but there was a pocket approximately 1.5 cm deep that was 5 cm long. We swabbed this area with cultures and sent for microbiology. I then used a Lott to sharply debride all of the superficial tissue. We also came down to the lumbodorsal fascia. There was no opening of this. The fascia was debrided but I did not go through the deep tissue as it appeared to be all superficial. The wound is then copiously irrigated. A drain was placed. Vancomycin powder was placed in the wound. The superficial tissue was closed in layers. The skin was closed with interrupted retention sutures. A sterile dressing was placed. He was then rolled over, extubated, and brought to recovery with no complications. Complications: none Condition: stable Disposition: PACU Plan for aftercare: Inpatient. Await culture results. Continue on IV antibiotics.
[2018-11-03] MEDS: HYDROMORPHONE 2 MG INJ 0.5 MG IV ×8 (12:20→12:55)
[2018-11-03] MEDS: LISINOPRIL 20 MG TABLET 40 MG PO (14:05)
[2018-11-03] MEDS: METOPROLOL ER 25 MG TABLET PO (14:05)
[2018-11-03] MEDS: LACTATED RINGERS 1,000 ML 125 ML IV (14:07)
[2018-11-03] MEDS: levoFLOXacin 750 MG/150 ML PIGGYBACK 100 MG IV (14:44)
[2018-11-03] MEDS: ONDANSETRON 4 MG/2 ML INJ IV (14:46)
--- NOTE | 2018-11-03 14:56 | PC.NURSE ---
Pt to floor from pacu. He is a&ox3. Denies pain but BP high at 170s/101. Given lisinopril 40mg and metoprolol 25mg. Pt had an emesis 30 minutes after meds given. BP rechecked at this time and 204/93. He states that he was having some dizziness and he was diaphoretic. Given some zofran at this time and patient felt better . Latest BP 162/78 and pulse 90. Pts ivf infusing with LR. He has a dressing to his lower back that is cdi. Resting comfortably now. called at clinic and unavailable. Called and left a message on his cell phone to call back to check in with us on pts bp. Pt resting now.
[2018-11-03] MEDS: OXYCODONE IR 5 MG TABLET 10 MG PO (16:21)
[2018-11-03] MEDS: INSULIN ASPART 100 UNIT/ML INSULN PEN SUBCUT (16:26)
[2018-11-03] MEDS: HYDROMORPHONE 1 MG INJ 0.5 MG IV (21:25)
[2018-11-03] MEDS: METOCLOPRAMIDE 10 MG/2 ML INJ IV (21:25)
[2018-11-04] VITALS (7 sets, daily range): BP systolic 114–144; BP diastolic 58–90; PULSE 65–77; RESP 16; TEMP 36.4–36.9; O2SAT 94–100
[2018-11-04] MEDS: LACTATED RINGERS 1,000 ML 125 ML IV ×2 (01:18→21:04)
--- NOTE | 2018-11-04 05:56 | PC.NURSE ---
Patient had order to discontinue IVF in am. Patient had nausea and emesis on 3-11 shift. Slight nausea on this shift. Patient was reluctant to drink much in case nausea and emesis returned. Leaving fluid going for now, until improved intake. Scant amount in hemovac. Did not empty.
--- NOTE | 2018-11-04 07:44 | P.PN_ITS ---
Subjective Date Patient Seen: 11/04/18 Time Patient Seen: 07:42 Interval history: He is feeling better with much less back pain. Exam Vital Signs (past 8 hours): - 11/03/18 23:45 11/04/18 00:00 11/04/18 05:00 Temperature 97.4 F L 97.5 F L Pulse Rate 86 74 Respiratory Rate 17 16 Blood Pressure 158/77 H 130/66 Pulse Oximetry 100 100 100 11/04/18 05:05 Temperature Pulse Rate Respiratory Rate Blood Pressure Pulse Oximetry 100 Oxygen Delivery Method Nasal Cannula Oxygen Flow Rate 2 Const Orientation: alert and oriented x3 Back/Spine/Pelvis Other: Minimal drainage at top of dressing. 0 mL output from drain. 5/5 motor both lower extremities. Objective Labs Result Diagrams: 11/03/18 10:35 11/03/18 10:35 Labs: Laboratory Results - last 24 hr 11/03/18 11/03/18 10:35 10:35 WBC 4.8 RBC 3.92 L Hgb 11.7 L Hct 35.3 L MCV 89.9 MCH 29.8 MCHC 33.1 RDW 13.3 Plt Count 272 Neut % (Auto) 75.6 H Lymph % (Auto) 12.5 L Garfield % (Auto) 8.5 Eos % (Auto) 2.7 Baso % (Auto) 0.7 Neut # (Auto) 3600 Lymph # (Auto) 600 L Garfield # (Auto) 400 Eos # (Auto) 100 Baso # (Auto) 0 ESR 22 H Sodium 139 Potassium 4.9 Chloride 104 Carbon Dioxide 26 BUN 33 H Creatinine 1.30 H Estimated GFR 54.6 L BUN/Creatinine Ratio 25.4 H Glucose 143 H Calcium 8.9 C-Reactive Protein 0.6 Assessment & Plan Post-op Postoperative Procedures Operation Date: 11/03/18 11:15 Actual Procedures Side Surgeon p Lumbar wound incision and drainage with irrigation washout, cultures René Anderson MD His Gram stain had Gram-positive cocci, I have switched him over to vancomycin. With a normal CRP and minimal elevation of his sedimentation rate, I think this is all just superficial. We are currently awaiting culture growth to focus our antibiotics. Anticipate him being here for 1-2 days more. Quality VTE Deep Vein Thrombosis/Pulmonary Embolism Present on Admission: No
[2018-11-04] MEDS: INSULIN ASPART 100 UNIT/ML INSULN PEN SUBCUT ×3 (08:53→16:26)
[2018-11-04] MEDS: METFORMIN HCL 500 MG TABLET 1000 MG PO ×2 (08:55→21:02)
[2018-11-04] MEDS: PIOGLITAZONE 15 MG TABLET 30 MG PO (08:55)
[2018-11-04] MEDS: OXYBUTYNIN 5 MG ER TAB 15 MG PO (08:55)
[2018-11-04] MEDS: glipiZIDE 5 MG TABLET 10 MG PO ×2 (08:55→21:02)
[2018-11-04] MEDS: ASPIRIN EC 81 MG TABLET PO (08:55)
[2018-11-04] MEDS: LISINOPRIL 20 MG TABLET 40 MG PO (08:55)
[2018-11-04] MEDS: DOCUSATE 100 MG CAPSULE PO ×2 (08:55→21:03)
[2018-11-04] MEDS: NAPROXEN 250 MG TABLET 500 MG PO (08:55)
[2018-11-04] MEDS: METOPROLOL ER 25 MG TABLET PO (08:55)
[2018-11-04] MEDS: VANCOMYCIN 1,000 MG/200 ML PIGGYBACK 200 MG IV ×2 (08:55→21:05)
--- NOTE | 2018-11-04 13:03 | PC.NURSE ---
Pt's dressing to lower back is cdi. He has denies pain this shift. Up moving around with sba and walker. in room. Pt does not have any complaints of numbness or tingling to lower extremities. He is sitting up in chair and comfortable. Resting now.
--- NOTE | 2018-11-04 15:50 | PT.IPTN ---
Current Diagnoses Infection following a procedure, other surgical site, initial encounter (11/03/18) Surgery Performed Operation Date: 11/03/18 11:15 Actual Procedures p Lumbar wound incision and drainage with irrigation washout, cultures - René Anderson MD Physical Therapy Treatment Note M2 PT-IP Current Condition Start: 11/04/18 10:30 Freq: NEEDED Status: Active Protocol: Document 11/04/18 15:38 IJS (Rec: 11/04/18 15:50 IJS [email or web address]) Physical Therapy Current Condition Current Condition Evaluation Date 11/04/18 Treatment Diagnosis Irrigation debridement post lumbar decompression, difficulty in walking Onset Date 11/03/18 Precautions Lumbar Precautions Log Roll No Twisting Limit Bending Lifting Restriction of 10 lbs Gait Belt above Incisional Area Weight Bearing Status Weight Bearing Status Weight Bear as Tolerated M3 PT-IP Subjective Start: 11/04/18 10:30 Freq: NEEDED Status: Active Protocol: Document 11/04/18 15:38 IJS (Rec: 11/04/18 15:50 IJS [email or web address]) Subjective Physical Therapy Visit Type Type Treatment Note Visit Start Time 15:22 Visit Stop Time 15:36 Total Visit Minutes 14 Notes Hemovac at surgical site. Physical Therapy Visit Comments Patient Comments Agrees to going for a walk and trial stairs Patient Goals To return home with his Therapy Pain Assessment Pain Present Pain Present Denied Pain M4 PT-IP Mobility and Gait Start: 11/04/18 10:30 Freq: NEEDED Status: Active Protocol: Document 11/04/18 15:38 IJS (Rec: 11/04/18 15:50 IJS [email or web address]) PT-Transfer Assessment Sit to and From Stand Sit to and from Stand Independent Equipment Transfer Assistive Device Gait Belt Front Wheeled Walker Transfers Transfer Destination Chair Transfer Ability Level of Assist Standby Assistance Comments Mobility Comments Patient was up in recliner chair when PT arrived and returned to recliner after gait/stair training. Gait Assessment Gait Gait Assistance Required: Standby Assistance Distance (Feet) 200 Able to Maintain Weight Bearing Status Yes During Gait Assistive Devices Assistive Device Gait Belt Front Wheeled Walker Gait Deviations General Gait Pattern Within Normal Limits Comments Gait Comments Patient did not hesitate when asked to go for a walk, stood up independently from recliner chair and walked down the fernández to the training stairs. Stair Climbing Assessment Evaluation Level of Assist On Stairs Standby Assistance Devices Stair Climbing Assistive Devices Left Railing Right Railing Technique/Endurance Stair Climbing Direction Ascend and Descend Stair Climbing Technique Step Over Step Step to Step Number of Steps Climbed 3 Comments Stair Climbing Comments Goes up the stairs step over and down step to step. M5 PT-IP Objective Assessments Start: 11/04/18 10:30 Freq: NEEDED Status: Active Protocol: Document 11/04/18 08:45 HH (Rec: 11/04/18 10:47 [email or web address]) Orientation Orientation/Cognition Level of Alertness Alert Orientation Name Age Birthday Month Date Year Day of Week Place Situation Language Function Ability No Deficits Noted Safety Awareness Understands Safety Issues Memory Description No Deficits Noted Gross Range of Motion Upper Extremity ROM Assessment Within Functional Limits Lower Extremity ROM Assessment Within Functional Limits Strength Upper Extremity Strength Assessment Within Functional Limits Lower Extremity Strength Assessment Within Functional Limits Coordination Assessment Gross Coordination Gross Coordination WNL Sensation Assessment Sensation Gross Sensation WNL Light Touch Intact Proprioception (Position) Intact Muscle Tone Muscle Tone WNL Yes M6 PT-IP Treatment Start: 11/04/18 10:30 Freq: NEEDED Status: Active Protocol: Document 11/04/18 15:38 IJS (Rec: 11/04/18 15:50 IJS [email or web address]) Physical Therapy Treatment Education Education Provided Precautions M7 PT-IP Assessment and Plan Start: 11/04/18 10:30 Freq: NEEDED Status: Active Protocol: Document 11/04/18 15:38 IJS (Rec: 11/04/18 15:50 IJS [email or web address]) PT Summary Assessment and Plan Potential Rehabilitation Potential Excellent Status of Condition at Evaluation Stable Summary Impairments ROM Strength Bed Mobility Activity Tolerance Assessment Summary present for treatment, she and her can recall the precautions and she makes sure he adheres to them. Stable with mobility, gait belt up high above incisional area. No LOB and normal gait pattern. He plans to return home on Wednesday. Skilled PT for review of bed mobility and improve activity tolerance for safe discharge home.
--- NOTE | 2018-11-04 16:12 | OT.IP.EVAL ---
Current Diagnoses Infection following a procedure, other surgical site, initial encounter (11/03/18) Surgery Performed Operation Date: 11/03/18 11:15 Actual Procedures p Lumbar wound incision and drainage with irrigation washout, cultures - René Anderson MD Past Medical History (Last Updated 09/11/18 @ 20:34 by Emily Coffman PA-C) Anxiety (Chronic) Arrhythmia (Chronic) BPH (benign prostatic hyperplasia) (Chronic) CAD (coronary artery disease) (Chronic) Chronic back pain (Chronic) Depression (Chronic) Diabetes (Chronic) First degree AV block (Chronic) HLD (hyperlipidemia) (Chronic) HTN (hypertension) (Chronic) Lipoma (Chronic) Lower extremity edema (Chronic) LEONARDO (obstructive sleep apnea) (Chronic) Vitamin D deficiency (Chronic) Atypical chest pain (Resolved) Syncope (Resolved) Surgical History (Last Updated 11/02/18 @ 14:49 by Fatimah Smith RN) Hx of laminectomy (Acute 08/23/18) Status post incision and drainage (Acute) H/O coronary angioplasty (Resolved) Hx of heart artery stent (Resolved ~04/2013) Hx of laminectomy (Resolved 08/08/15) Hx of transurethral resection of prostate (Resolved) Occupational Therapy Inpatient Evaluation/Re-Eval M1 PT/OT-IP Prior Functional Status Start: 11/04/18 10:30 Freq: NEEDED Status: Active Protocol: Document 11/04/18 08:45 HH (Rec: 11/04/18 10:47 [email or web address]) Medical Review Prior Functional Status Medical History Reviewed Yes Communication No deficits noted. Able to make needs known. Mobility and Gait Pt amb with B hiking sticks for community mobility. No for home mobility. Pt does have difficulty bending over to bead picker objects from floor. Activities of Daily Living and IADL's Independent with most ADLs except donning his shoes and socks due to his back surgeries; independent with IADLs. He also uses ordering machine operator to bead picker objects from floor. Social History Household Members spouse Living Arrangements Mobile home Number of Stairs To Enter/Railing? 3 DOREEN with B rails Home Environment Standard Height Toilet Walk in Shower Home Equipment Front Wheel Walker Straight Cane Raised Toilet Seat Without Armrests Hand Held Shower Senior C Developer Grab Bars In Shower Additional Social History Comment Pt lives with spouse in a mobile home in [place]. She is very independent and active who was able to assist pt as needed. Pt had his 1st back surgery in Aug, 2018 and 2nd one in September,. He was discharged home for both hospitalization. M1 PT/OT-IP Prior Functional Status Start: 11/04/18 16:00 Freq: NEEDED Status: Active Protocol: Document 11/04/18 16:02 CGR (Rec: 11/04/18 16:12 CGR [email or web address]) Medical Review Prior Functional Status Medical History Reviewed Yes Communication No deficits noted. Able to make needs known. Mobility and Gait Pt amb with B hiking sticks for community mobility. No for home mobility. Pt does have difficulty bending over to bead picker objects from floor. Activities of Daily Living and IADL's Independent with most ADLs except donning his shoes and socks due to his back surgeries; independent with IADLs. He also uses ordering machine operator to bead picker objects from floor. Social History Household Members spouse Living Arrangements Mobile home Number of Stairs To Enter/Railing? 3 DOREEN with B rails Home Environment Standard Height Toilet Walk in Shower Home Equipment Front Wheel Walker Straight Cane Raised Toilet Seat Without Armrests Hand Held Shower Long Handled Shoe [place] Senior C Developer Sock Aid Grab Bars In Shower Employment Status Retired Additional Social History Comment Pt lives with spouse in a mobile home. Wifeis independent and able to assist pt as needed. Pt had his 1st back surgery in Aug, 2018 and 2nd one in September,. He was discharged home for both hospitalization. 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 M2 OT-IP Current Condition Start: 11/04/18 16:00 Freq: Status: Active Protocol: Document 11/04/18 16:02 CGR (Rec: 11/04/18 16:12 CGR [email or web address]) Occupational Therapy Current Condition Current Condition Evaluation Date 11/04/18 Treatment Diagnosis I&D to recent back sx. Diagnosis Onset Date 11/03/18 Post Operative Precautions Lumbar Precautions Log Roll No Twisting Limit Bending Lifting Restriction of 10 lbs Gait Belt above Incisional Area M3 OT- IP Subjective and Pain Start: 11/04/18 16:00 Freq: Status: Active Protocol: Document 11/04/18 16:02 CGR (Rec: 11/04/18 16:12 CGR [email or web address]) OT- Subjective Occupational Therapy Visit Type Type Initial Evaluation Visit Start Time 14:20 Visit Stop Time 14:50 Total Visit Minutes 30 Occupational Therapy Visit Comments Patient Comments I am back! OT Pain Assessment Pain When Pain Assessed At Rest Pain Present Pain Present Denied Pain M4 OT- IP ADL's Start: 11/04/18 16:00 Freq: Status: Active Protocol: Document 11/04/18 16:02 CGR (Rec: 11/04/18 16:12 CGR [email or web address]) OT [id number] Comments OT Self-Feeding Comments Not meal time OT ADL-Grooming General Evaluation Grooming Ability Independent Areas Needing Assistance Combing/Brushing Hair Face Washing Comments OT Grooming Comments Standing at sink OT ADL-Oral Care General Eval Oral Care Ability Independent Areas of Assistance Brushing Teeth Comments Oral Care Comments Standing at sink OT ADL-Dressing Comments OT Dressing Comments Pt states his does his LB dressing but that he has a hip kit and uses it when his is not home. Declined the need for further training. OT ADL-Toileting General Evaluation Toileting Ability Independent Comments OT Toileting Comments demonstrated tranfer ability OT ADL-Bathing Comments OT Bathing Comments Not performed M5 OT- IP IADL's Start: 11/04/18 16:00 Freq: Status: Active Protocol: Document 11/04/18 16:02 CGR (Rec: 11/04/18 16:12 CGR [email or web address]) OT-Instrumental Activities of Daily Living Deficits IADL Deficits Identified No Deficits Home Safety Awareness Awareness of Need for Assistance at Home Good Awareness Ability to Problem Solve Emergency Able to Problem Solve Situations M6 OT- IP Functional Cognition Start: 11/04/18 16:00 Freq: Status: Active Protocol: Document 11/04/18 16:02 CGR (Rec: 11/04/18 16:12 CGR [email or web address]) Cognitive Factors Limiting Selfcare Function Cognitive Ability Level of Alertness Alert Patient Orientation Name Age Birthday Month Date Year Day of Week Place Situation Attention Span Ability Capable of Focused Attention Capable of Sustained Attention Ability to Follow Commands Able to Follow Multi-Step Commands Memory Description No Deficits Noted Safety Awareness No Deficits Noted Problem Solving Ability No deficits Noted Executive Function Ability No Deficits Noted Abstract Thinking Ability No Deficits Noted OT- Vision and Hearing OT- Hearing Assessment OT- Hearing Assessment WFL OT- Vision Assessment Visual Acuity Glasses All The Time Visual Attentiveness WFL Occular Pursuits WFL Visual Convergence WFL Visual Garces WFL M7 OT- IP Mobility and Balance Start: 11/04/18 16:00 Freq: Status: Active Protocol: Document 11/04/18 16:02 CGR (Rec: 11/04/18 16:12 CGR [email or web address]) OT- Bed Mobility Assessment Rolling Type of Rolling Log Rolling Level of Assistance Independent Supine to Sit Supine to Sit Assist Independent Sit to Supine Sit to Supine Assist Independent Scooting Scooting to Edge of Bed Independent OT-Transfer Assessment Sit to and From Stand Sit to and from Stand Standby Assistance Transfers Transfer Ability Standby Assistance Technique Transfer Destination Bed Chair Toilet Transfer Technique Stand Step Pivot Devices Transfer Assistive Devices Front Wheeled Walker OT- Gait Assessment Gait Gait Assistance Required: Standby Assistance Assistive Devices Assistive Device Front Wheeled Walker OT- Balance Assessment Sitting Balance and Reactions Static Sitting Balance Ability Normal Dynamic Sitting Balance Ability Normal M8 OT- IP Objective Assessments Start: 11/04/18 16:00 Freq: Status: Active Protocol: Document 11/04/18 16:02 CGR (Rec: 11/04/18 16:12 CGR [email or web address]) OT Gross Range of Motion Upper Extremity Range of Motion Assessment Within Functional Limits OT Strength Upper Extremity Strength Assessment Left Impaired Comments Strength Comments L shld weakness from fall and injury to L shld not acute OT- Coordination Assessment Upper Extremity Finger to Nose Test Within Functional Limits Finger Tapping Test Within Functional Limits OT-Muscle Tone Assessment Muscle Tone WNL Yes OT Sensation Assessment Comments Summary Comments States typical sensation to UE Edema Edema Absent M9 OT- IP Assessment and Plan Start: 11/04/18 16:00 Freq: Status: Active Protocol: Document 11/04/18 16:02 CGR (Rec: 11/04/18 16:12 CGR [email or web address]) OT Summary Assessment and Plan Potential Rehabilitation Potential Excellent Analytic Complexity at Evaluation Low Summary Progress Towards Goals Safe For Discharge Assessment Summary Pt presents s/p I&D of back. Pt is knowledgeable on his back precautions and able to perform all ADLs. Will defer functional mobility to P.T. No further OT needs. Frequency of Treatment Frequency Of Treatment Discharge Discharge Recommendations OT Discharge Recommendations Home with Assistance Home Equipment Needs No needs
[2018-11-04] MEDS: SENNOSIDES 8.6 MG TABLET 17.2 MG PO (21:02)
--- NOTE | 2018-11-04 22:32 | PC.NURSE ---
Pt pulled out hemovac accidentally this shift. MD Echavarria aware. Pt has had no output for two 8 hour shifts.
[2018-11-05 05:21] VITALS: BP 148/75; PULSE 75; RESP 16; TEMP 37.1; O2SAT 96
[2018-11-05] MEDS: LACTATED RINGERS 1,000 ML 125 ML IV (06:46)
[2018-11-05 07:35] VITALS: BP 139/76; PULSE 69; RESP 16; TEMP 36.6; O2SAT 95
--- NOTE | 2018-11-05 09:51 | P.PN_ITS ---
Subjective Date Patient Seen: 11/05/18 Time Patient Seen: 09:49 Interval history: He is doing very well. Minimal discomfort. Walking well. His drain pulled out last night. Exam Vital Signs (past 8 hours): - 11/05/18 05:21 11/05/18 07:35 Temperature 98.8 F 97.8 F Pulse Rate 75 69 Respiratory Rate 16 16 Blood Pressure 148/75 H 139/76 Pulse Oximetry 96 95 Oxygen Delivery Method Room Air Oxygen Flow Rate 0 Const Orientation: alert and oriented x3 Back/Spine/Pelvis Other: Minimal dry drainage. 5/5 motor both lower extremities. Objective Labs Result Diagrams: 11/03/18 10:35 11/03/18 10:35 Assessment & Plan Post-op Postoperative Procedures Operation Date: 11/03/18 11:15 Actual Procedures Side Surgeon p Lumbar wound incision and drainage with irrigation washout, cultures René Anderson MD He has no growth to date from his wound cultures. I discussed this with the [employer] tech, there appeared to be a possible diphtheriod on the Gram stain but this was felt to be a contaminant. I am going to send him home on oral antibiotics with Keflex. Discharge home today. Quality VTE Deep Vein Thrombosis/Pulmonary Embolism Present on Admission: No
[2018-11-05] MEDS: METFORMIN HCL 500 MG TABLET 1000 MG PO (09:56)
[2018-11-05] MEDS: LISINOPRIL 20 MG TABLET 40 MG PO (09:56)
[2018-11-05] MEDS: OXYBUTYNIN 5 MG ER TAB 15 MG PO (09:56)
[2018-11-05] MEDS: DOCUSATE 100 MG CAPSULE PO (09:57)
[2018-11-05] MEDS: NAPROXEN 250 MG TABLET 500 MG PO (09:57)
[2018-11-05] MEDS: glipiZIDE 5 MG TABLET 10 MG PO (09:57)
[2018-11-05] MEDS: ASPIRIN EC 81 MG TABLET PO (09:57)
[2018-11-05] MEDS: PIOGLITAZONE 15 MG TABLET 30 MG PO (09:58)
[2018-11-05] MEDS: METOPROLOL ER 25 MG TABLET PO (09:58)
[2018-11-05] MEDS: VANCOMYCIN 1,000 MG/200 ML PIGGYBACK 200 MG IV (10:08)
--- NOTE | 2018-11-05 10:09 | P.DS_ITS ---
History of Present Illness Date Patient Seen: 11/05/18 Time Patient Seen: 10:09 Chief complaint: [id number] Narrative: 68-year-old male who had a L3-4 and L4-5 laminectomy on 08/23/2018. He had wound breakdown with drainage and was brought back to the operating room on 09/23/2018. He had been doing well. However the wound began opening up again the day prior to admission. He was not having any fevers or chills but did have a little bit more drainage. Discharge Providers Date of admission: 11/03/18 10:52 Discharge Date: 11/05/18 Primary care physician: Maral Cid PA-C Consults: 11/03/18 10:44 Consult to Respiratory Therapy Evaluate & Treat Comment: Physician Instructions: Evaluate and treat 11/03/18 13:50 Consult to Occupational Therapy Evaluate & Treat Comment: Physician Instructions: Evaluate and treat Consult to Physical Therapy Evaluate & Treat Comment: Physician Instructions: Evaluate and Treat Discharge provider: René Anderson MD Summary Discharge Diagnosis: Postoperative wound infection Hospital Course: He was brought to the operating room on 11/03/2018 where he u nderwent an irrigation debridement of his lumbar wound. The wound itself looked fairly clean at that point with no jama purulence or drainage. He had a Gram- positive cocci on the Gram stain which on 2nd look appeared to be more of a diphtheriod and felt to be contaminant. Nothing ever grew out of the cultures. He had no drainage from his drain. By postoperative day 2. He was up and mobilizing well with minimal pain. Status at Discharge Cognitive/behavioral status at discharge: oriented Overall status at discharge: patient is progressing back to baseline Exam Vital Signs (past 8 hours): - 11/05/18 05:21 11/05/18 07:35 Temperature 98.8 F 97.8 F Pulse Rate 75 69 Respiratory Rate 16 16 Blood Pressure 148/75 H 139/76 Pulse Oximetry 96 95 Oxygen Delivery Method Room Air Oxygen Flow Rate 0 Const Orientation: alert and oriented x3 Back/Spine/Pelvis Other: Minimal dry drainage. 5/5 motor both lower extremities. Objective Labs Result Diagrams: 11/03/18 10:35 11/03/18 10:35 Discharge Plan Discharge Plan Patient Disposition: Home Discharge comment: f/u 1.5 wks Discharge Med Rec/Prescriptions Prescriptions: New hydroxyzine pamoate 25 mg Capsule 25 mg PO Q4HR PRN (Reason: Nausea And Vomiting) Qty: 15 RF: 0 oxycodone 5 mg Tablet 5 mg PO Q3HR PRN (Reason: Pain, Moderate (4-6)) Qty: 25 RF: 0 docusate sodium [DOK] 100 mg Capsule 100 mg PO BID PRN (Reason: constipation) Qty: 20 RF: 0 cephalexin [Keflex] 500 mg capsule 500 mg PO QID Qty: 40 RF: 0 Continued metoprolol succinate 25 mg Tablet Extended Release 24 Hr 25 mg PO DAILY RF: 0 aspirin 81 mg Tablet,Delayed Release (Dr/Ec) 81 mg PO DAILY RF: 0 oxybutynin chloride 15 mg Tablet Extended Release 24hr 15 mg PO DAILY RF: 0 glipizide 10 mg Tablet 10 mg PO BID RF: 0 metformin 1,000 mg Tablet 1,000 mg PO BID RF: 0 lisinopril 40 mg Tablet 40 mg PO DAILY RF: 0 pioglitazone 30 mg Tablet 30 mg PO DAILY Qty: 0 RF: 0 naproxen [Naprosyn] 500 mg Tablet 500 mg PO DAILY RF: 0 docusate sodium [DOK] 100 mg Capsule 100 mg PO BID PRN (Reason: constipation) Qty: 30 RF: 0 Discontinued hydroxyzine pamoate 25 mg Capsule 25 mg PO Q4HR PRN (Reason: spasms) Qty: 20 RF: 0 oxycodone 5 mg Tablet 5 mg PO Q4-6H PRN (Reason: Pain, Moderate (4-6)) Qty: 20 RF: 0 Follow up/Referrals: Maral Cid PA-C [Primary Care Provider] - Provider Discharge Instructions Diet: Carb-consistent/Diabetic Activity: limited BLT Skin/Wound/Dressing Care Report to your healthcare provider any signs of infection, such as:: chills, fever, night sweats, increased pain, unusual drainage and unusual redness Dressing: keep dressing intact. Do not remove stitches for 2-3 weeks. Visit Report/Discharge Packet Instructions: DI for Incision and Drainage Stand Alone Forms: Surgery Discharge Discharge Data Primary Care Provider: Maral Cid I Attending Provider: René Anderson Admit Date/Time: 11/03/18 10:52 Quality VTE Deep Vein Thrombosis/Pulmonary Embolism Present on Admission: No
--- NOTE | 2018-11-05 11:00 | PT.IPTN ---
Current Diagnoses Infection following a procedure, other surgical site, initial encounter (11/03/18) Surgery Performed Operation Date: 11/03/18 11:15 Actual Procedures p Lumbar wound incision and drainage with irrigation washout, cultures - René Anderson MD Physical Therapy Treatment Note M2 PT-IP Current Condition Start: 11/04/18 10:30 Freq: NEEDED Status: Active Protocol: Document 11/04/18 15:38 IJS (Rec: 11/04/18 15:50 IJS [email or web address]) Physical Therapy Current Condition Current Condition Evaluation Date 11/04/18 Treatment Diagnosis Irrigation debridement post lumbar decompression, difficulty in walking Onset Date 11/03/18 Precautions Lumbar Precautions Log Roll No Twisting Limit Bending Lifting Restriction of 10 lbs Gait Belt above Incisional Area Weight Bearing Status Weight Bearing Status Weight Bear as Tolerated M3 PT-IP Subjective Start: 11/04/18 10:30 Freq: NEEDED Status: Active Protocol: Document 11/05/18 10:45 CLB (Rec: 11/05/18 11:53 CLB [id number]) Subjective Physical Therapy Visit Type Type Treatment Note Visit Start Time 10:45 Visit Stop Time 11:00 Total Visit Minutes 15 Number of PUNCHBOARD STUFFER Visits 1 Physical Therapy Visit Comments Patient Comments Pt agreeable to ambulate Patient Goals To return home with his Therapy Pain Assessment Pain Present Pain Present Denied Pain M4 PT-IP Mobility and Gait Start: 11/04/18 10:30 Freq: NEEDED Status: Active Protocol: Document 11/05/18 10:45 CLB (Rec: 11/05/18 11:53 CLB [id number]) PT-Bed Mobility Assessment Rolling Type of Rolling Log Rolling Roll to Left Level of Assist Standby Assistance Scooting Scooting to Edge of Bed Standby Assistance PT-Transfer Assessment Sit to and From Stand Sit to and from Stand Independent Equipment Transfer Assistive Device Gait Belt Front Wheeled Walker Transfers Transfer Destination Chair Transfer Ability Level of Assist Standby Assistance Gait Assessment Gait Gait Assistance Required: Standby Assistance Distance (Feet) 450 Able to Maintain Weight Bearing Status Yes During Gait Assistive Devices Assistive Device Gait Belt Front Wheeled Walker Gait Deviations General Gait Pattern Within Normal Limits M5 PT-IP Objective Assessments Start: 11/04/18 10:30 Freq: NEEDED Status: Active Protocol: Document 11/04/18 08:45 HH (Rec: 11/04/18 10:47 HH [id number]) Orientation Orientation/Cognition Level of Alertness Alert Orientation Name Age Birthday Month Date Year Day of Week Place Situation Language Function Ability No Deficits Noted Safety Awareness Understands Safety Issues Memory Description No Deficits Noted Gross Range of Motion Upper Extremity ROM Assessment Within Functional Limits Lower Extremity ROM Assessment Within Functional Limits Strength Upper Extremity Strength Assessment Within Functional Limits Lower Extremity Strength Assessment Within Functional Limits Coordination Assessment Gross Coordination Gross Coordination WNL Sensation Assessment Sensation Gross Sensation WNL Light Touch Intact Proprioception (Position) Intact Muscle Tone Muscle Tone WNL Yes M6 PT-IP Treatment Start: 11/04/18 10:30 Freq: NEEDED Status: Active Protocol: Document 11/04/18 15:38 IJS (Rec: 11/04/18 15:50 IJS [email or web address]) Physical Therapy Treatment Education Education Provided Precautions M7 PT-IP Assessment and Plan Start: 11/04/18 10:30 Freq: NEEDED Status: Active Protocol: Document 11/05/18 10:45 CLB (Rec: 11/05/18 11:53 CLB [id number]) PT Summary Assessment and Plan Potential Rehabilitation Potential Excellent Status of Condition at Evaluation Stable Summary Impairments ROM Strength Bed Mobility Activity Tolerance Assessment Summary Pt is Ind-SBA for all mobility and transfers. Pt ambulated in fern[place] SBA ~450ft with steady gait and good safety awareness. Pt may d/c home when medically stable. Goals Bed Mobility Goal Independent Transfer Goal Independent Front Wheeled Walker Gait Goal Independent Front Wheel Walker Gait Distance 300 Other Goals 3 DOREEN with B rails independnently Days to Meet Goals 5 Treatment Plan Physical Therapy Treatment Plan Bed Mobility Training Transfer Training Gait Training Therapeutic Exercise Balance Retraining Post Op Education Discharge Planning Hot or Cold Pack Neuromuscular Re-ed Recommendations To Nursing Amount of Assist Needed 1 Person Assist Discharge Recommendations PT Discharge Recommendations Home with Assistance
[2018-11-05 12:14] VITALS: BP 151/83; PULSE 76; RESP 16; TEMP 37.4; O2SAT 98
[2018-11-05] MEDS: INSULIN ASPART 100 UNIT/ML INSULN PEN SUBCUT (12:25)
== END 2018-11-05 12:37 | disposition home or self-care (01) | DRG 721 ==
PROVIDERS: Admitting Provider Orthopaedic Surgery; PCP Physician Assistant; Visit Provider Orthopaedic Surgery
PROC: 0JB70ZZ Excision of Back Subcutaneous Tissue and Fascia, Open Approach (ICD-10-PCS; CPT 10180; principal; 2018-11-03 11:15)
DX: T81.41XA Infection following a procedure, superficial incisional surgical site, initial encounter (principal); T81.31XA Disruption of external operation (surgical) wound, not elsewhere classified, initial encounter; E66.9 Obesity, unspecified; Z68.39 Body mass index [BMI] 39.0-39.9, adult; G47.30 Sleep apnea, unspecified; I10 Essential (primary) hypertension; E11.9 Type 2 diabetes mellitus without complications; F32.9 Major depressive disorder, single episode, unspecified; I25.10 Atherosclerotic heart disease of native coronary artery without angina pectoris; Z79.84 Long term (current) use of oral hypoglycemic drugs
CPT/HCPCS: 80048; 82962; 85025; 85651; 86140; 87070; 87075; 87077; 87205; 94760; 97116; 97161; 97165; 97530; 97535; J0330; J1170; J1956; J2405; J2704; J2765; J3010

== ENCOUNTER 2019-01-14 20:12 | Emergency (ER) | payer OTHER, SELFPAY ==
[2018-11-03 14:20] VITALS: BMI 39.6
[2019-01-14 20:33] VITALS: BP 178/80; PULSE 89; RESP 16; TEMP 36.8; O2SAT 100; BMI 38.9
--- NOTE | 2019-01-14 21:35 | ED_ITS ---
HPI - Back Pain/Injury General Chief Complaint: Back Pain/Injury Stated Complaint: pain near an old surgery incision site Time Seen by Provider: 01/14/19 21:12 Source: patient and family Limitations: no limitations History of Present Illness HPI Narrative: Patient is 68-year-old male presenting with all right-sided back pain. He actually had a laminectomy in September. He has had complications with healing incision. He has been taken back to the OR at least twice for washout. Last time was November. The wound has been healing and seems healed now. However over the last 2-3 days he has had increasing right buttock pain. Seems to be ra diating down his leg. He does feel like his right leg is weak but that been off and on for some time. He has had falls since the washouts as well but nothing recently. He has been taking [place] for pain over the last few days but he says it has not really been helping. He has previously had oxycodone which he says does better. MD Complaint: back pain Related Data Home Medications Medication Instructions Recorded Confirmed aspirin 81 mg PO DAILY 08/17/18 11/03/18 glipizide 10 mg PO BID 08/17/18 11/03/18 lisinopril 40 mg PO DAILY 08/17/18 11/03/18 metformin 1,000 mg PO BID 08/17/18 11/03/18 oxybutynin chloride 15 mg PO DAILY 08/17/18 11/03/18 naproxen [Naprosyn] 500 mg PO DAILY 08/23/18 11/03/18 pioglitazone 30 mg PO DAILY #0 08/23/18 11/03/18 metoprolol succinate 25 mg PO DAILY 11/03/18 11/03/18 Previous Rx's Medication Instructions Recorded docusate sodium [DOK] 100 mg PO BID PRN #30 cap 08/24/18 cephalexin [Keflex] 500 mg PO QID #40 cap 11/05/18 docusate sodium [DOK] 100 mg PO BID PRN #20 cap 11/05/18 hydroxyzine pamoate 25 mg PO Q4HR PRN #15 cap 11/05/18 oxycodone 5 mg PO Q3HR PRN #25 tab 11/05/18 oxycodone-acetaminophen [Percocet] 1 tab PO Q6H PRN #10 tab 01/14/19 Allergies Allergy/AdvReac Type Severity Reaction Status Date / Time Penicillins [PENICILLINS] Allergy Severe ANAPHYLAXIS Verified 11/03/18 10:49 Sulfa (Sulfonamide Allergy Reaction Verified 11/03/18 10:49 Antibiotics) not listed Review of Systems Review of Systems ROS Unobtainable: All systems reviewed & are unremarkable except as noted in HPI and below Constitutional Constitutional: Denies chills, Denies fever(s), Denies lethargy and Denies weakness Eyes Eyes: Denies change in vision, Denies eye discharge, Denies irritation and Denies loss of vision ENT Ears, Nose, Mouth, and Throat: Denies change in voice, Denies neck pain and Denies sore throat Cardiovascular Cardiovascular: Denies chest pain, Denies irregular heart rhythm, Denies lightheadedness, Denies palpitations, Denies dyspnea, Denies dyspnea on exertion and Denies orthopnea Respiratory Respiratory: Denies cough, Denies dyspnea, Denies dyspnea on exertion and Denies wheezing Gastrointestinal Gastrointestinal: Denies abdominal pain, Denies change in bowel habits, Denies diarrhea, Denies nausea and Denies vomiting Genitourinary Genitourinary: Denies urinary incontinence Musculoskeletal Musculoskeletal: Reports system reviewed and no additional complaints, except as docu, Reports back pain and Denies neck pain Neurologic Neurologic: Denies loss of vision and Denies weakness Endocrine Endocrine: Denies palpitations Allergic/Immunologic Allergic/Immunologic: Denies wheezing Patient History Medical/Surgical History Medical History Anxiety (Chronic) Arrhythmia (Chronic) Atypical chest pain (Resolved) BPH (benign prostatic hyperplasia) (Chronic) CAD (coronary artery disease) (Chronic) Chronic back pain (Chronic) Depression (Chronic) Diabetes (Chronic) First degree AV block (Chronic) HLD (hyperlipidemia) (Chronic) HTN (hypertension) (Chronic) Lipoma (Chronic) Lower extremity edema (Chronic) LEONARDO (obstructive sleep apnea) (Chronic) Syncope (Resolved) Vitamin D deficiency (Chronic) Surgical History H/O coronary angioplasty (Resolved) Hx of heart artery stent (Resolved ~04/2013) Hx of laminectomy (Resolved 08/08/15) Hx of laminectomy (Acute 08/23/18) Hx of transurethral resection of prostate (Resolved) Status post incision and drainage (Acute) Social History household members: spouse Smoking Status: Never smoker alcohol intake: never Family/Social History Social History household members: spouse Smoking Status: Never smoker alcohol intake: never alcohol intake frequency: 0-2 drinks per day Substance Use Type: does not use Exam Initial Vital Signs Initial Vital Signs: Vital Signs Temperature 98.2 F 01/14/19 20:33 Pulse Rate 89 01/14/19 20:33 Respiratory Rate 16 01/14/19 20:33 Blood Pressure 178/80 H 01/14/19 20:33 Pulse Oximetry 100 01/14/19 20:33 GENERAL: Alert pleasant elderly male appears in pain and in no acute distress. HEENT: Head atraumatic,EOMI, pupils reactive, face symmetric, mucous membranes CARDIOVASCULAR: Regular rate and rhythm without murmurs, rubs or gallops. RESPIRATORY: Breath sounds equal bilaterally, no wheezes rales or rhonchi. ABDOMEN: Soft, nontender. Normoactive bowel sounds all 4 quadrants. No guarding or rebound. BACK: Incision site clean and dry no open wounds. Nontender over midline no vertebral tenderness. He does have tenderness and piriformis area in his right buttock. Pain is reproducible to touch. EXTREMITIES: Normal range of motion, no clubbing or edema. Neurovascularly intact. Sensation in lower extremities intact and equal NEUROLOGICAL: Alert and oriented x4.Normal gait and speech. Cranial nerves II through XII grossly intact. SKIN: Warm, dry, no laceration, no petechiae, no rashes or lesions. Course Orders Ordered: Discontinued Medications Hydromorphone HCl (Dilaudid) 1 mg SUBCUT Q4H PRN PRN Reason: Pain, Severe (7-10) Last Admin: 01/14/19 22:46 Dose: 1 mg Documented by: KONSTANTIN Oxycodone/Acetaminophen (Endocet 5/325 Prepack) 1 bottle MISC SEEINSTR ONE Stop: 01/15/19 00:03 Last Admin: 01/15/19 00:06 Dose: 1 bottle Documented by: KONSTANTIN Vital Signs Vital signs: Vital Signs - 8 hr 01/14/19 20:33 01/14/19 22:01 01/15/19 00:10 Temperature 98.2 F Pulse Rate 89 76 66 Respiratory Rate 16 18 16 Blood Pressure 178/80 H 151/89 H Blood Pressure [Left Arm] 148/81 H Pulse Oximetry 100 99 100 MDM - Back Pain/Injury MDM Narrative Medical decision making narrative: Pain is significantly improved after Dilaudid. He states he has appointment with on his orthopedic surgeon in 2 days. At this time appears the patient has more peer form is like syndrome and muscle spasm. Not tender midline or over the incision. No neurologic deficits appreciated at this time. He does have some right leg weakness but has been ongoing for some time does not seem to be new. Discharge Plan Departure Patient Disposition: Home Clinical Impression: Acute exacerbation of chronic low back pain Discharge Date/Time: 01/15/19 00:10 Instructions: DI for Back Pain With Sciatica Activity Restrictions/Additional Instructions: *You have been diagnosed with acute on chronic back pain *What to do: This seems to be due to a muscle spasm. Recommend a light stretches. Some light activity is encouraged no strenuous activity or heavy lifting. Heating pad as well. *Continue to take medications as directed Percocet 1 -2 tablets every 6 hours if needed for severe pain STOP TAKING HYDROCODONE *Follow up with your primary care provider in 2-3 days, follow up with Dr. millard as scheduled in 2 days *Return to ER if you should have increasing leg weakness, falls, urinary incontinence or stool incontinence or any new, worsening or concerning symptoms CONTROLLED SUBSTANCE DISCHARGE (Narcotoic/benzodiazepine/Flexeril/Phenergan) 1. You have been prescribed narcotic medications, it does have acetaminophen/Tylenol/paracetamol in it so do not take extra Tylenol or Tylenol containing products 2. Please understand that we cannot provide further refills of narcotics, benzodiazepines or controlled substances through the ED and her pain management will need to be through your provider. 3. While on these medications you cannot drive or operate heavy machinery. 4. You cannot sign legal documents or perform any duties such as this. 5. As long as you're taking opiate pain medications he should also be taking a stool softener such as Colace, Dulcolax, MiraLAX or prune juice, to help avoid constipation. Prescriptions: New oxycodone-acetaminophen [Percocet] 5-325 mg tablet 1 tab PO Q6H PRN (Reason: pain) Qty: 10 RF: 0 No Action metoprolol succinate 25 mg Tablet Extended Release 24 Hr 25 mg PO DAILY RF: 0 hydroxyzine pamoate 25 mg Capsule 25 mg PO Q4HR PRN (Reason: Nausea And Vomiting) Qty: 15 RF: 0 oxycodone 5 mg Tablet 5 mg PO Q3HR PRN (Reason: Pain, Moderate (4-6)) Qty: 25 RF: 0 docusate sodium [DOK] 100 mg Capsule 100 mg PO BID PRN (Reason: constipation) Qty: 20 RF: 0 cephalexin [Keflex] 500 mg capsule 500 mg PO QID Qty: 40 RF: 0 aspirin 81 mg Tablet,Delayed Release (Dr/Ec) 81 mg PO DAILY RF: 0 oxybutynin chloride 15 mg Tablet Extended Release 24hr 15 mg PO DAILY RF: 0 glipizide 10 mg Tablet 10 mg PO BID RF: 0 metformin 1,000 mg Tablet 1,000 mg PO BID RF: 0 lisinopril 40 mg Tablet 40 mg PO DAILY RF: 0 pioglitazone 30 mg Tablet 30 mg PO DAILY Qty: 0 RF: 0 naproxen [Naprosyn] 500 mg Tablet 500 mg PO DAILY RF: 0 docusate sodium [DOK] 100 mg Capsule 100 mg PO BID PRN (Reason: constipation) Qty: 30 RF: 0 Referrals: Maral Cid PA-C [Primary Care Provider] - René Anderson MD [Physician] -
[2019-01-14 22:01] VITALS: BP 148/81; PULSE 76; RESP 18; O2SAT 99
[2019-01-14] MEDS: HYDROMORPHONE 2 MG INJ 1 MG SUBCUT (22:46)
[2019-01-15] MEDS: OXYCODONE/APAP 5/325 PREPACK 1 BOTTLE MISC (00:06)
[2019-01-15 00:10] VITALS: BP 151/89; PULSE 66; RESP 16; O2SAT 100
== END 2019-01-15 00:10 | disposition home or self-care (01) ==
PROVIDERS: Emergency Provider Emergency Medicine; PCP Physician Assistant
DX: M54.5 Low back pain (principal); G89.29 Other chronic pain
CPT/HCPCS: 99282; J1170